=== PATIENT | female | born 1975 | race Caucasian/White ===

== ENCOUNTER → 2017-04-29 13:18 | Outpatient (CLI) | payer MEDICAID, SELFPAY ==
--- NOTE | 2017-04-29 13:21 | RAD_ITS ---
STUDY: X-RAY - RIGHT SHOULDER REASON FOR EXAM: Female, 41 years old. Shoulder pain. TECHNIQUE: 3 view(s) of the shoulder. COMPARISON: None. FINDINGS: Normal glenohumeral articulation. Normal acromioclavicular joint. Normal acromion. Normal humeral head and visualized proximal humerus. The soft tissue structures are unremarkable. Normal visualized pulmonary apex. RAD/Shoulder min 2 Views IMPRESSION: Normal x-ray examination of the shoulder. Electronically Signed: Cruz Alejandra MD at 14:26 EST Tel [phone], Service support ,
== END ==
PROVIDERS: Family Provider Internal Medicine; PCP Internal Medicine; Visit Provider Orthopaedic Surgery
DX: M25.511 Pain in right shoulder (principal)
CPT/HCPCS: 73030

== ENCOUNTER → 2017-05-26 16:55 | Outpatient (CLI) | payer MEDICAID, SELFPAY ==
--- NOTE | 2017-05-26 16:57 | MRI_ITS ---
STUDY: MRI RIGHT SHOULDER REASON FOR EXAM: Female, 41 years old. Right-sided shoulder pain with movement. TECHNIQUE: Standardized fat and water weighted pulse sequences were obtained in all 3 orthogonal planes. COMPARISON: None. FINDINGS: There is intratendinous edema consistent with a supraspinatus tendinitis. Normal infraspinatus tendon. There is mild abnormal signal within the distal subscapularis tendon suggesting partial thickness tear. Normal teres minor tendon. Normal supraspinatus muscle. Normal infraspinatus muscle. Normal subscapularis muscle. Normal teres minor muscle. Normal glenohumeral articulation. There is mild heterogeneous signal within the humerus that may be related to reactivated hematopoietic marrow. Normal biceps labral complex. Normal intracapsular long biceps tendon. Normal labrum. Normal capsulo- ligamentous complex. Normal rotator interval. There is mild osteoarthritis of the acromioclavicular articulation. There is a Type I morphology (flat undersurface),. There is minimal fluid distention of the subacromial bursa, consistent with mild subacromial-subdeltoid bursitis. Normal deltoid muscle. Normal trapezius muscle. MRI/Upper Ext Joint Only(Routine) IMPRESSION: 1. Mild tendinopathy of the supraspinatus tendon. 2. Possible partial thickness tear of the distal subscapularis tendon. Electronically Signed: Anali Rayo MD at 11:49 EDT , Service support ,
== END ==
PROVIDERS: Family Provider Internal Medicine; PCP Internal Medicine; Visit Provider Orthopaedic Surgery
DX: M75.110 Incomplete rotator cuff tear or rupture of unspecified shoulder, not specified as traumatic (principal); S43.439A Superior glenoid labrum lesion of unspecified shoulder, initial encounter
CPT/HCPCS: 73221

== ENCOUNTER 2017-09-14 18:03 | Emergency (ER) | payer MEDICAID, SELFPAY ==
[2017-09-14 18:04] VITALS: BP 141/80; PULSE 73; RESP 16; TEMP 36.1; O2SAT 97; BMI 27.1
--- NOTE | 2017-09-14 18:13 | RAD_ITS ---
STUDY: X-RAY - LEFT ELBOW REASON FOR EXAM: Female, 42 years old. Posterior pain and limited range of motion after fall. TECHNIQUE: 3 view(s) of the elbow. COMPARISON: None. FINDINGS: There is a nondisplaced intra-articular fracture of the radial head. Normal visualized humerus and ulna. Normal radiocapitellar and ulnotrochlear articulations. There is displacement of the intercondylar fat pads by joint effusion or hemarthrosis. RAD/Elbow min 3 Views IMPRESSION: Nondisplaced intra-articular fracture of the radial head, accompanied by joint effusion or hemarthrosis. Electronically Signed: Dillon Gonzalez MD at 19:27 EDT , Service support ,
--- NOTE | 2017-09-14 18:15 | ED.VISSUMM ---
- ER Visit Summary Date of Service: 09/14/17 Chief Complaint: Fall with left elbow pain History of Present Illness: The patient is a 42 F right-hand dominant. States she slipped and fell down a rock landing on her left elbow. This occurred last several hours. She denies any other injuries. She denies any prior fracture or surgery to the left upper extremity. No head injury. No LOC. Physical Examination: Well-appearing middle-age female. Vital signs are stable afebrile. H EENT exam on remarkable. Atraumatic. Neck nontender full range of motion. Lungs clear to auscultation bilaterally. Heart regular rate and rhythm no murmur. Chest wall nontender. Abdomen soft nontender. No peritoneal signs. Pelvic girdle intact. She is moving all 4 extremities. The neurovascular intact. No gross bony deformities. Specifically the left elbow on the dorsum is mildly swollen and has mild pain on palpation. No gross bony deformity. Landmarks intact. Distal forearm, wrist and hand are nontender neurovascular intact with normal external grinder tool strength. Full range of motion to her left hand. Normal radial pulse. Back exam is nontender. Spine is nontender. Neurologic exam is normal. GCS 15. Test Results: Left elbow x-ray nondisplaced radial head fracture. 3 views read by myself. Emergency Department Course and Treatment: P.o. Percocet for pain Treatment Plan: Patient is doing well repeat exam. She does have increased elbow pain with supination and pronation. She was placed in a long-arm well-padded posterior splint. Also receive a sling. She will call and follow-up with Dr. Liao. Percocet for pain and Motrin. Disposition: discharge Impression: Acute fall Acute left elbow radial head fracture Long-arm posterior splint by ER with Ortho-Glass This note was generated with [employer] dictation software. It may contain incorrect words, spelling, and punctuation that were not noted in review of the chart prior to signing ED Disposition - Plan for ED Patient: Chief Complaint: Upper Extremity Injury Referrals: Jhoan Alvarez Jr., MD [NON-STAFF] -
[2017-09-14] MEDS: oxyCODONE 5 MG Tablet 10 MG PO (18:26)
--- NOTE | 2017-09-14 18:54 | ED.DEP ---
ED Disposition - Plan for ED Patient: Disposition: Home or Assisted Living Chief Complaint: Upper Extremity Injury Instructions: ED Fx Radial Head Prescriptions: Oxycodone HCl/Acetaminophen [Percocet 10-325 mg Tablet] 1 - 2 tab PO Q6H PRN PRN #20 tab PRN Reason: Pain Referrals: Kati Liao DO [STAFF PHYSICIAN] - As soon as possible Additional Instructions: Keep splint dry and clean. Ice to decrease pain and swelling. Motrin and Percocet for pain. Do not drink or drive while using the Percocet. Call and follow-up with Dr. Liao. You had a left elbow radial head fracture.
[2017-09-14 18:55] VITALS: BP 138/70; PULSE 80; RESP 14; O2SAT 99
[2017-09-14] MEDS: oxyCODONE 5 MG Tablet PO (19:09)
== END 2017-09-14 19:10 | disposition home or self-care (01) ==
PROVIDERS: Emergency Provider Emergency Medicine
DX: S52.125A Nondisplaced fracture of head of left radius, initial encounter for closed fracture (principal); W01.0XXA Fall on same level from slipping, tripping and stumbling without subsequent striking against object, initial encounter; Y93.01 Activity, walking, marching and hiking; Y92.89 Other specified places as the place of occurrence of the external cause; Y99.8 Other external cause status
CPT/HCPCS: 29105; 73080; 99282

== ENCOUNTER 2017-09-25 17:18 | Emergency (ER) | payer MEDICAID, SELFPAY ==
[2017-09-25 17:19] VITALS: BP 136/94; PULSE 86; RESP 18; TEMP 36.9; O2SAT 99; BMI 26.6
[2017-09-25] MEDS: Naproxen 500 MG Tablet PO (17:35)
--- NOTE | 2017-09-25 17:40 | RAD_ITS ---
STUDY: X-RAY - LEFT ELBOW REASON FOR EXAM: Female, 42 years old. Elbow pain. Radial head fracture diagnosed on September 14, 2017. TECHNIQUE: 4 view(s) of the elbow. COMPARISON: September 14, 2017 FINDINGS: The nondisplaced radial head fracture which was present on the prior study remains. Normal radiocapitellar and ulnotrochlear articulations. The soft tissue structures are unremarkable. RAD/Elbow min 3 Views IMPRESSION: Stable nondisplaced radial head fracture. No new finding. Electronically Signed: Selvin Amor MD at 18:03 EDT , Service support ,
--- NOTE | 2017-09-25 18:12 | ED.DCSUM_ITS ---
- ER Visit Summary Date of Service: 09/25/17 Chief Complaint: Left elbow pain History of Present Illness: The patient is a 42 F who presents with left elbow pain. She had a mechanical fall on September 14 was diagnosed with a radial head fracture. She was placed in a splint. She did see orthopedics in follow-up in the splint was removed. She was told that she could go ahead and start physical therapy. Patient complains of ongoing pain since that time. She is now out of Percocet. She states she has not tried any other medication since ibuprofen the day of the injury. She was getting out of the pool today and slipped and caught herself with her arms and her pain seems to be worse since that time. No paresthesias or weakness. Patient denies any other injuries. Physical Examination: Afebrile vitals are normal Heart regular Lungs clear Patient has painful range of motion of left elbow but is able to go through full range of motion she is neurovascularly intact with normal sensation and brisk capillary refill Test Results: Left elbow x-ray shows a stable nondisplaced radial head fracture Emergency Department Course and Treatment: Patient was given naproxen here. She was offered further anti-inflammatories for home which she declined. I stressed the importance of supportive care including ice and elevation. She was advised to follow-up with orthopedics. She was discharged. Treatment Plan: [] Disposition: Discharge Impression: Left radial head fracture This note was generated with [employer] dictation software. It may contain incorrect words, spelling, and punctuation that were not noted in review of the chart prior to signing ED Disposition - Plan for ED Patient: Chief Complaint: Upper Extremity Injury Referrals: Care Physician,No Primary [Primary Care Provider] -
--- NOTE | 2017-09-25 18:15 | ED.DEP ---
ED Disposition - Plan for ED Patient: Chief Complaint: Upper Extremity Injury Instructions: ED Fx Radial Head Referrals: Care Physician,No Primary [Primary Care Provider] - Kati Liao DO [STAFF PHYSICIAN] -
[2017-09-25 18:19] VITALS: PULSE 86; RESP 15
== END 2017-09-25 18:20 | disposition home or self-care (01) ==
PROVIDERS: Emergency Provider Emergency Medicine
DX: S52.125D Nondisplaced fracture of head of left radius, subsequent encounter for closed fracture with routine healing (principal); F41.9 Anxiety disorder, unspecified; G47.00 Insomnia, unspecified; Z79.899 Other long term (current) drug therapy; W19.XXXD Unspecified fall, subsequent encounter
CPT/HCPCS: 73080; 99283

== ENCOUNTER 2018-02-07 08:26 | Emergency (ER) | payer MEDICAID, SELFPAY ==
[2018-02-07 08:28] VITALS: BP 111/69; PULSE 113; RESP 16; TEMP 37.1; O2SAT 97; BMI 27.4
--- NOTE | 2018-02-07 08:49 | RAD_ITS ---
STUDY: X-RAY - LUMBAR SPINE REASON FOR EXAM: Female, 42 years old. Low back pain following a fall. TECHNIQUE: 3 view(s) of the lumbar spine were obtained. COMPARISON: None FINDINGS: Normal lumbar lordosis. There is a minimal dextroscoliosis of the lumbar spine. There is a normal alignment of the vertebrae. Normal vertebral bodies and endplates. Normal disc space heights. Calcified phleboliths. RAD/Lumbar Spine 2 or 3 Views IMPRESSION: Minimal dextroscoliosis. Electronically Signed: Cruz Alejandra MD at 10:09 EST Tel [phone], Service support ,
[2018-02-07] MEDS: oxyCODONE 5 MG Tablet PO (09:37)
--- NOTE | 2018-02-07 10:51 | ED.VISSUMM ---
- ER Visit Summary Date of Service: 02/07/18 Chief Complaint: [Back injury] History of Present Illness: The patient is a 42 F [resents to the emergency department with complaint of a back injury that occurred when she slipped and fell yesterday. Patient states that she was going down some icy steps when she fell and landed on her back. Patient denies striking her head or loss of consciousness. Patient states that she bumped her left elbow but really not having much discomfort in it. Patient has been ambulatory. Patient denies any pain rating down her legs. She denies any change in bowel or bladder function. She denies any numbness or tingling in extremities.] Physical Examination: [HEENT-PERRLA, EOMI. Cranial nerves II through XII grossly intact. TMs clear. Mucous membranes moist. No adenopathy. Cardiovascular-regular rate and rhythm without murmur or ectopy Lungs-clear to auscultation, chest wall stable without crepitus or subcu emphysema Abdomen-normoactive bowel sounds, soft, nontender, no rebound or rigidity, no peritoneal signs. Back exam-patient has no tenderness over the thoracic spine. Patient has no C-spine tenderness on palpation. Patient does have some mild diffuse tenderness over the lumbar spine. There is no ecchymosis or bruising noted to her back. Patient has negative straight leg raises. Deep tendon reflexes are plus 2 out of 4 bilaterally at the patella and Achilles. Extremities-intact ?4, normal range of motion, normal pulses, atraumatic] Test Results: [X-rays of the lumbar spine obtained were read as no fractures.] Emergency Department Course and Treatment: [Was given 1 OxyIR p.o. for pain.] Treatment Plan: [Patient will be given a prescription for a few days worth of Percocet and given referral to primary care physician bank credit card collection clerk for no doc.] Disposition: [Discharged home in stable condition. Patient advised to return if worsening pain, weakness in extremities, change of bowel or bladder function, or condition should worsen anyway.] Impression: [Mechanical fall Contusion back] This note was generated with [employer] dictation software. It may contain incorrect words, spelling, and punctuation that were not noted in review of the chart prior to signing ED Disposition - Plan for ED Patient: Chief Complaint: Back Referrals: Care Physician,No Primary [Primary Care Provider] -
--- NOTE | 2018-02-07 10:54 | ED.DCSUM_ITS ---
- ER Visit Summary Date of Service: 02/07/18 Chief Complaint: [Back injury] History of Present Illness: The patient is a 42 F [resents to the emergency department with complaint of a back injury that occurred when she slipped and fell yesterday. Patient states that she was going down some icy steps when she fell and landed on her back. Patient denies striking her head or loss of consciousness. Patient states that she bumped her left elbow but really not having much discomfort in it. Patient has been ambulatory. Patient denies any pain rating down her legs. She denies any change in bowel or bladder function. She denies any numbness or tingling in extremities.] Physical Examination: [HEENT-PERRLA, EOMI. Cranial nerves II through XII grossly intact. TMs clear. Mucous membranes moist. No adenopathy. Cardiovascular-regular rate and rhythm without murmur or ectopy Lungs-clear to auscultation, chest wall stable without crepitus or subcu emphysema Abdomen-normoactive bowel sounds, soft, nontender, no rebound or rigidity, no peritoneal signs. Back exam-patient has no tenderness over the thoracic spine. Patient has no C- spine tenderness on palpation. Patient does have some mild diffuse tenderness over the lumbar spine. There is no ecchymosis or bruising noted to her back. Patient has negative straight leg raises. Deep tendon reflexes are plus 2 out of 4 bilaterally at the patella and Achilles. Extremities-intact ?4, normal range of motion, normal pulses, atraumatic] Test Results: [X-rays of the lumbar spine obtained were read as no fractures.] Emergency Department Course and Treatment: [Was given 1 OxyIR p.o. for pain.] Treatment Plan: [Patient will be given a prescription for a few days worth of Percocet and given referral to primary care physician environmental assistant for no doc.] Disposition: [Discharged home in stable condition. Patient advised to return if worsening pain, weakness in extremities, change of bowel or bladder function, or condition should worsen anyway.] Impression: [Mechanical fall Contusion back] This note was generated with [employer] dictation software. It may contain incorrect words, spelling, and punctuation that were not noted in review of the chart prior to signing ED Disposition - Plan for ED Patient: Chief Complaint: Back Referrals: Care Physician,No Primary [Primary Care Provider] -
--- NOTE | 2018-02-07 10:54 | ED.DEP ---
ED Disposition - Plan for ED Patient: Chief Complaint: Back Instructions: ED Contusion Back Prescriptions: Oxycodone HCl/Acetaminophen [Percocet 5/325] 1 tab PO Q6H PRN PRN 3 Days #12 tab PRN Reason: Pain Referrals: Care Physician,No Primary [Primary Care Provider] - Fast,Arti, DO [NON-STAFF] - 5-7 Days
[2018-02-07 11:01] VITALS: PULSE 102; RESP 14; O2SAT 98
--- NOTE | 2018-02-07 11:02 | NURSING ---
pt states ride is waiting out side. pt instructed not to drive. she was d/c to waiting room. sen head rn. [id number]
--- OUTSIDE RECORDS SUMMARY | 2018-03-21 21:53 | XMS RPT_ITS ---
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 Neurological: She is alert. Skin: Skin is warm and dry. No rash noted. Nursing note and vitals reviewed. ASSESSMENT/PLAN: 1. Bacterial sinusitis - ICD9: 473.9, 041.9, ICD10: J32.9, B96.89 (primary diagnosis) - Will begin treatment with Augmentin 875 mg PO BID for 10 days - Supportive care with plenty of fluids, rest, and analgesia prn. - AMOXICILLIN 875 MG-POTASSIUM CLAVULANATE 125 MG TABLET - BENZONATATE 100 MG CAPSULE - did not refill cough syrup with codeine, a 5 day supply was given 3 days ago. 2. History of gastroesophageal reflux (GERD) - ICD9: V12.79, ICD10: Z87.19 - OMEPRAZOLE 20 MG CAPSULE,DELAYED RELEASE- refill provided. - Follow-up with your PCP in 3-5 days if symptoms have not improved or sooner if symptoms worsen - Discussed red flags and need for immediate medical evaluation if any occur. - Discussed supportive care treatment with fluids, rest and analgesia. - Discussed expected course of illness BENJAMIN Jensen APRN.CNP 08/23/2017 10:15 AM Signed Acute Sinusitis Each of us has four paired cavities (spaces) in our head that are connected to the nose by narrow channels. These cavities, known as sinuses, produce thin mucus that drains out of the channels of the nose. This drainage helps keep the nose clean and free of particles and bacteria. Normally, sinuses are filled with air. But when sinuses become blocked and filled with fluid, bacteria can grow and cause an infection (bacterial sinusitis). Conditions that cause sinus blockage include: ? the common cold ? allergic rhinitis (swelling of the lining of the nose due to allergies) ? nasal polyps (small growths in the lining of the nose), or ? a deviated septum (the wall between the left and right nostril is crooked). Allergies, such as hay fever, can also cause swelling and poor drainage of the sinuses. One confusing factor to consider is that many people with ?sinus headaches? are actually suffering from migraines. In fact, in large clinical studies, up to 90% of people who reported sinus headaches were diagnosed with migraines instead. Migraines can cause headaches in combination with facial pressure over the sinuses, a runny nose, and nasal congestion. If you have symptoms that involve the sinuses, it may be difficult to tell if you have sinusitis, a cold, nasal allergy, or even a migraine. This article will describe the symptoms, diagnosis, and treatment of sinusitis, and how to tell the difference between sinusitis, cold, migraines, and nasal allergy. What is sinusitis? Sinusitis is an inflammation, or swelling, of the tissue lining the sinuses. There are two types of sinusitis: ? Acute bacterial sinusitis: a sudden onset of cold symptoms such as runny nose, stuffy nose, and facial pain that does not go away after 10 days, or symptoms that seem to begin improving but return worse than the initial symptoms. It responds well to antibiotics and decongestants. ? Chronic sinusitis: a condition defined by nasal congestion, drainage, facial pain/pressure, and decreased sense of smell for at least 12 weeks. Who gets sinusitis? Every year, approximately 1 billion Americans have at least one episode of viral sinusitis. About 37 million will develop a bacterial sinusitis. People who have the following conditions have a higher risk of sinusitis: ? Nasal mucus membrane swelling, as from a common cold or allergies ? Blockage of drainage ducts, leading to trapping of mucus ? Structure differences that narrow the drainage ducts ? Conditions that result in an increased risk of infection ? Polyps (growths) In children, common factors in the environment that contribute to sinusitis include allergies, illness from other children at day care or school, and smoke in the environment. In adults, the contributing factors are most frequently viral infections, allergies, and smoking. What are the signs and symptoms of acute sinusitis? The primary symptoms of acute sinusitis include: ? Facial pain/pressure/tenderness ? Nasal stuffiness ? Nasal discharge (thick yellow or green discharge from nose), especially if it is long-lasting. These also may be present with viral illness. ? Loss of smell and taste ? Cough/congestion Additional symptoms may include: ? Fever of 102? or higher ? Ear pain ? Headache ? Bad breath ? Fatigue ? Ache in upper jaw and teeth How is sinusitis diagnosed? To diagnose sinusitis, your doctor will discuss your symptoms and examine your nose for swelling and drainage. Your personal history is most important in diagnosing sinusitis. A physical exam of the ears, nose, and throat is performed to look for signs of obstruction (blockage) or infection. Some patients may have conditions that may need to be referred to a specialist, such as an ear, nose, and throat (ENT) physician. How is sinusitis treated? Acute sinusitis. If you have a simple sinusitis infection, your health care provider may recommend treatment with driz-pns-sjqtwlh medications for cold and allergy, nasal saline irrigation, and drinking fluids (as most sinusitis is viral). Use of prescription intranasal steroid sprays might be added to help control symptoms. However, non-prescription drops or sprays should not be used beyond 5 days -- or they may actually increase congestion. If symptoms do not improve after at least 10 days, if the symptoms seem to be getting worse, or if medications for cold or allergy do not improve symptoms, a bacterial infection may be causing the sinusitis. In this case, antibiotics are given for 7 days in adults and 10 days in children. Antibiotics should improve symptoms within 48 hours. Chronic sinusitis. Treating chronic sinusitis begins with controlling the underlying condition, which is most often allergies. Standard treatments include intranasal steroid sprays, topical antihistamine sprays, or antihistamine pills, and leukotriene antagonists such as montelukast. Often you will be encouraged to rinse the nose with saline irrigations. Sometimes medications may be added to these irrigations. If sinusitis is not controlled, the next step is a visit with an Ear, Nose and Throat Specialist. Will I need to make lifestyle changes? If you have indoor allergies, avoiding triggers -- such as animal dander and dust mites ? is recommended in addition to medications. Smoking is never recommended, but if you do smoke, strongly consider a program to help you stop smoking, as this may be the main reason you have sinus infections. No special diet is required, but drinking extra fluids helps to thin nasal secretions. What are the symptoms of the common cold? An upper respiratory infection (the common cold) is usually caused by a virus that infects the nose and throat. Most upper respiratory infections are not bacterial and do not respond to antibiotics. A cold may cause swelling in the sinuses, preventing the outflow of mucus. Cold symptoms include nasal congestion, runny nose, post-nasal drip (xwhv-cf-zmcn release of nasal fluid into the back of the throat), headache, achiness, and fatigue. Cough and fever may also go along with these symptoms. Cold symptoms usually build, peak, and slowly disappear. No treatment is necessary for a cold, but some medications can ease symptoms. For example, decongestants may decrease drainage and open the nasal passages. Analgesics (pain relievers) may help with fever and headache. Cough medication may help, as well. Colds will typically last from a few days to about a week. What is the harm in getting an antibiotic for a common cold? Viral infections like the common cold are not cured by antibiotics. Taking an antibiotic for a viral infection unnecessarily puts you at risk for side effects related to the antibiotic. In addition, the overuse of antibiotics leads to antibiotic resistance, which may make future infections more difficult to treat. Finally, the use of inappropriate medication increases health care costs unnecessarily. What are the symptoms of nasal allergy? Symptoms of nasal allergy include: ? Sneezing ? Itchy nose ? Clear, watery nasal discharge ? Nasal blockage ? Feeling fatigued How is nasal allergy treated? Usually medications are prescribed to relieve symptoms. These may include antihistamines, with or without decongestants, or steroid nasal sprays. Other nasal sprays, which deliver antihistamines or cromolyn sodium, are sometimes helpful. If allergy symptoms are chronic (long-term), allergy testing and allergy shots (immunotherapy) may be helpful. How can I tell if I have a sinus infection, cold, or nasal allergy? Although the symptoms of sinusitis and nasal allergy may occur with a common cold, in general, cold-related symptoms disappear within 1 week. The point at which a normal cold ends and a sinus condition begins is not always easy to know. If you are fighting off a cold and develop symptoms of a sinus infection or nasal allergy, see your health care provider. You will be asked to describe your symptoms and medical history. ? How do I know if my sinus condition requires the care of an ear, nose, and throat specialist? Most routine sinus conditions are easily cared for by primary care physicians. If, however, you are bothered by ongoing abnormal symptoms, recurring infections, or have abnormal X-ray findings or complications, a referral to a specialist is appropriate. References ? Mariam Ramon et al., IDSA Clinical Practice Guideline for Acute Bacterial Rhinosinusitis in Children and Adults. Clinical Infectious Diseases; 2012;54(8):4458-2616. ? Evelyn Devries, Sinusitis: Allergies, antibiotics, aspirin, asthma. [facility] Journal of Medicine 2006; 73(7): 671-678 ? National [employer]ious [employer]. Sinusitis (Sinus Infection) Accessed 01/21/2015. ? [place] [employer], [employer]hma, and Immun[employer]. Sinusitis Accessed 01/21/2015. ? [place] [employer]. Sinus Information Accessed 01/21/2015. ? Kathia George., Prevalence of migraine in patients with a history of self-reported or physician-diagnosed sinus headache. [employer], 2004. 164(16):1769-72. ? Copyright 2552-3568 The [facility]. All rights reserved. Referring Provider: SELF [200] Allergies As of Date: 08/23/2017 Noted Allergy Reaction CODEINE 04/18/2006 4 - Hives 9 - Itching Comments: only tylenol with codeine VICODIN (HYDROCODONE-ACETAMINOPHE*03/29/2007 9 - Itching Date Reviewed: 08/23/2017 Reviewed by: Lorin ([facility]) Phillip - Fully Assessed Reason for Visit: Cough [28] Cmt: sinus fullness AND burning, headache AND sore throat X 2 wks Reason For Visit History Recorded Primary Visit Diagnosis:Bacterial sinusitis [J32.9, B96.89] Other Visit Diagnosis:History of gastroesophageal reflux (GERD) [Z87.19] Order(s):omeprazole (PRILOSEC) 20 mg capsuleTake 1 capsule by mouth as needed. 1/2 hr before meal.Disp: 30 capsuleRfl: 0 amoxicillin-clavulanic acid (AUGMENTIN) 875-125 mg per tabletTake 1 tablet by mouth twice daily for 10 days.Disp: 20 tabletRfl: 0 benzonatate (TESSALON PERLE) 100 mg capsuleTake 1 capsule by mouth three times daily as needed for up to 10 days.Disp: 30 capsuleRfl: 0 Prescriptions as of 08/23/2017 Sig: IBUPROFEN 600 MG TABLET Take 1 tablet by mouth every * LORAZEPAM 0.5 MG TABLET Take by mouth three times da* DEXTROAMPHETAMINE-AMPHETAMINE* Take 10 mg by mouth once amadou* AMBIEN ORAL Take by mouth. 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 These cavities, known as sinuses, produce thin mucus that drains out of the channels of the nose. This drainage helps keep the nose clean and free of particles and bacteria. Normally, sinuses are filled with air. But when sinuses become blocked and filled with fluid, bacteria can grow and cause an infection (bacterial sinusitis). Conditions that cause sinus blockage include: ? the common cold ? allergic rhinitis (swelling of the lining of the nose due to allergies) ? nasal polyps (small growths in the lining of the nose), or ? a deviated septum (the wall between the left and right nostril is crooked). Allergies, such as hay fever, can also cause swelling and poor drainage of the sinuses. One confusing factor to consider is that many people with ?sinus headaches? are actually suffering from migraines. In fact, in large clinical studies, up to 90% of people who reported sinus headaches were diagnosed with migraines instead. Migraines can cause headaches in combination with facial pressure over the sinuses, a runny nose, and nasal congestion. If you have symptoms that involve the sinuses, it may be difficult to tell if you have sinusitis, a cold, nasal allergy, or even a migraine. This article will describe the symptoms, diagnosis, and treatment of sinusitis, and how to tell the difference between sinusitis, cold, migraines, and nasal allergy. What is sinusitis? Sinusitis is an inflammation, or swelling, of the tissue lining the sinuses. There are two types of sinusitis: ? Acute bacterial sinusitis: a sudden onset of cold symptoms such as runny nose, stuffy nose, and facial pain that does not go away after 10 days, or symptoms that seem to begin improving but return worse than the initial symptoms. It responds well to antibiotics and decongestants. ? Chronic sinusitis: a condition defined by nasal congestion, drainage, facial pain/pressure, and decreased sense of smell for at least 12 weeks. Who gets sinusitis? Every year, approximately 1 billion Americans have at least one episode of viral sinusitis. About 37 million will develop a bacterial sinusitis. People who have the following conditions have a higher risk of sinusitis: ? Nasal mucus membrane swelling, as from a common cold or allergies ? Blockage of drainage ducts, leading to trapping of mucus ? Structure differences that narrow the drainage ducts ? Conditions that result in an increased risk of infection ? Polyps (growths) In children, common factors in the environment that contribute to sinusitis include allergies, illness from other children at day care or school, and smoke in the environment. In adults, the contributing factors are most frequently viral infections, allergies, and smoking. What are the signs and symptoms of acute sinusitis? The primary symptoms of acute sinusitis include: ? Facial pain/pressure/tenderness ? Nasal stuffiness ? Nasal discharge (thick yellow or green discharge from nose), especially if it is long-lasting. These also may be present with viral illness. ? Loss of smell and taste ? Cough/congestion Additional symptoms may include: ? Fever of 102? or higher ? Ear pain ? Headache ? Bad breath ? Fatigue ? Ache in upper jaw and teeth How is sinusitis diagnosed? To diagnose sinusitis, your doctor will discuss your symptoms and examine your nose for swelling and drainage. Your personal history is most important in diagnosing sinusitis. A physical exam of the ears, nose, and throat is performed to look for signs of obstruction (blockage) or infection. Some patients may have conditions that may need to be referred to a specialist, such as an ear, nose, and throat (ENT) physician. How is sinusitis treated? Acute sinusitis. If you have a simple sinusitis infection, your health care provider may recommend treatment with auza-orr-myzjzoa medications for cold and allergy, nasal saline irrigation, and drinking fluids (as most sinusitis is viral). Use of prescription intranasal steroid sprays might be added to help control symptoms. However, non- prescription drops or sprays should not be used beyond 5 days -- or they may actually increase congestion. If symptoms do not improve after at least 10 days, if the symptoms seem to be getting worse, or if medications for cold or allergy do not improve symptoms, a bacterial infection may be causing the sinusitis. In this case, antibiotics are given for 7 days in adults and 10 days in children. Antibiotics should improve symptoms within 48 hours. Chronic sinusitis. Treating chronic sinusitis begins with controlling the underlying condition, which is most often allergies. Standard treatments include intranasal steroid sprays, topical antihistamine sprays, or antihistamine pills, and leukotriene antagonists such as montelukast. Often you will be encouraged to rinse the nose with saline irrigations. Sometimes medications may be added to these irrigations. If sinusitis is not controlled, the next step is a visit with an Ear, Nose and Throat Specialist. Will I need to make lifestyle changes? If you have indoor allergies, avoiding triggers -- such as animal dander and dust mites ? is recommended in addition to medications. Smoking is never recommended, but if you do smoke, strongly consider a program to help you stop smoking, as this may be the main reason you have sinus infections. No special diet is required, but drinking extra fluids helps to thin nasal secretions. What are the symptoms of the common cold? An upper respiratory infection (the common cold) is usually caused by a virus that infects the nose and throat. Most upper respiratory infections are not bacterial and do not respond to antibiotics. A cold may cause swelling in the sinuses, preventing the outflow of mucus. Cold symptoms include nasal congestion, runny nose, post- nasal drip (vdux-dk-tlmg release of nasal fluid into the back of the throat), headache, achiness, and fatigue. Cough and fever may also go along with these symptoms. Cold symptoms usually build, peak, and slowly disappear. No treatment is necessary for a cold, but some medications can ease symptoms. For example, decongestants may decrease drainage and open the nasal passages. Analgesics (pain relievers) may help with fever and headache. Cough medication may help, as well. Colds will typically last from a few days to about a week. What is the harm in getting an antibiotic for a common cold? Viral infections like the common cold are not cured by antibiotics. Taking an antibiotic for a viral infection unnecessarily puts you at risk for side effects related to the antibiotic. In addition, the overuse of antibiotics leads to antibiotic resistance, which may make future infections more difficult to treat. Finally, the use of inappropriate medication increases health care costs unnecessarily. What are the symptoms of nasal allergy? Symptoms of nasal allergy include: ? Sneezing ? Itchy nose ? Clear, watery nasal discharge ? Nasal blockage ? Feeling fatigued How is nasal allergy treated? Usually medications are prescribed to relieve symptoms. These may include antihistamines, with or without decongestants, or steroid nasal sprays. Other nasal sprays, which deliver antihistamines or cromolyn sodium, are sometimes helpful. If allergy symptoms are chronic (long- term), allergy testing and allergy shots (immunotherapy) may be helpful. How can I tell if I have a sinus infection, cold, or nasal allergy? Although the symptoms of sinusitis and nasal allergy may occur with a common cold, in general, cold-related symptoms disappear within 1 week. The point at which a normal cold ends and a sinus condition begins is not always easy to know. If you are fighting off a cold and develop symptoms of a sinus infection or nasal allergy, see your health care provider. You will be asked to describe your symptoms and medical history. ? How do I know if my sinus condition requires the care of an ear, nose, and throat specialist? Most routine sinus conditions are easily cared for by primary care physicians. If, however, you are bothered by ongoing abnormal symptoms, recurring infections, or have abnormal X-ray findings or complications, a referral to a specialist is appropriate. References ? Mariam Ramon et al., IDSA Clinical Practice Guideline for Acute Bacterial Rhinosinusitis in Children and Adults. Clinical Infectious Diseases; 2012;54(8):1109-5117. ? Evelyn Devries, Sinusitis: Allergies, antibiotics, aspirin, asthma. [facility] Journal of Medicine 2006; 73(7): 671-678 ? [employer]ious [employer]. Sinusitis (Sinus Infection) Accessed 01/21/2015. ? [place] [employer], Asthma, and Immunology. Sinusitis Accessed 01/21/2015. ? [place] [employer]. Sinus Information Accessed 01/21/2015. ? Kathia George., Prevalence of migraine in patients with a history of self-reported or physician-diagnosed sinus headache. [employer], 2003. 164(16):1769-72. ? Copyright 4030-6297 The [facility]. All rights reserved. Prescriptions ordered this encounter Disp Refills Start End OMEPRAZOLE 20 MG CAPSULE,DELAYED REL* 30 c* 0 08/23/2017 Route: ORAL Sig: Take 1 capsule by mouth as needed. 1/2 hr before meal. AMOXICILLIN 875 MG-POTASSIUM CLAVULA* 20 t* 0 08/23/2017 09/02/2017 Route: ORAL Sig: Take 1 tablet by mouth twice daily for 10 days. BENZONATATE 100 MG CAPSULE 30 c* 0 08/23/2017 09/02/2017 Route: ORAL Sig: Take 1 capsule by mouth three times daily as needed for up to 10 days. Medications Discontinued During This Encounter codeine-guaiFENesin (GUAIFENESIN AC)* 60 mL 0 08/20/2017 08/23/2017 Class: Print RX Route: ORAL Sig: Take 5 mL by mouth three times daily as needed for Cough for up to 5 days. Patient not taking: Reported on 08/23/2017 Disc: Reason for discontinue is not on file. ARIPIPRAZOLE (ABILIFY ORAL) 08/23/2017 Class: Historical Med Route: ORAL Sig: Take by mouth. Disc: Reason for discontinue is not on file. omeprazole (PRILOSEC) 20 mg capsule 03/18/2016 08/23/2017 Class: Med Update Route: ORAL Sig: Take 1 capsule by mouth as needed. 1/2 hr before meal. Patient not taking: Reported on 08/20/2017 Disc: Reason for discontinue is not on file. meclizine (ANTIVERT) 25 mg tab 30 t* 0 03/10/2016 08/23/2017 Route: ORAL Sig: Take 1 tablet by mouth three times daily as needed (dizziness). Patient not taking: Reported on 08/20/2017 Disc: Reason for discontinue is not on file. ondansetron orally disintegrating (Z* 10 t* 0 02/12/2016 08/23/2017 Route: ORAL Sig: Take 1 tablet by mouth every 6 hours as needed for Nausea/Vomiting. Patient not taking: Reported on 08/20/2017 Disc: Reason for discontinue is not on file. ALPRAZolam (XANAX) 0.5 mg tablet 08/23/2017 Class: Historical Med Route: ORAL Sig: Take 0.5 mg by mouth twice daily as needed. Disc: Reason for discontinue is not on file. dicyclomine (BENTYL) 20 mg tablet 40 t* 0 09/26/2015 08/23/2017 Route: ORAL Sig: Take 1 tablet by mouth every 6 hours. Patient not taking: Reported on 08/20/2017 Disc: Reason for discontinue is not on file. topiramate (TOPAMAX) 100 mg tablet 08/23/2017 Class: Historical Med Route: ORAL Sig: Take 100 mg by mouth three times daily. Disc: Reason for discontinue is not on file. Encounter Status:Closed by LORIN FISHER on 08/23/17 PROGRESS Observed: 08/20/2017 Status: COMPLETED Source: [place] 12:39 PM [facility] [place] REPOSITORY HNO ID: [id number] Author: Abhishek Frazier Service: (none) Author Type: Physician Type: Progress Notes Filed: 08/20/2017 12:55 PM Note Text: Patient presents with: Sore Throat: sore throat X 4 days, cough X 4 days HPI: Feeling sick for 4 days. Positive symptoms: Cough, sleep disturbance, Sore throat (left side), painful to eat or swallow in the left ear, AM eye crust, Nasal Congestion, Body Aches, Negative symptoms: Shortness of breath, Chest pain, Rhinorrhea, Fever, Chills, OTC: Ibuprofen,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 Hand washing is an essential and highly effective way to prevent the spread of infection. Hands should be wet with water and plain soap, and rubbed together for 15 to 30 seconds. Special attention should be paid to the fingernails, between the fingers, and the wrists. Hands should be rinsed thoroughly, and dried with a single use towel. Alcohol-based hand rubs are a good alternative for disinfecting hands if a sink is not available. Hand rubs should be spread over the entire surface of hands, fingers, and wrists until dry, and may be used several times. These rubs can be used repeatedly without skin irritation or loss of effectiveness. Hand rubs are available as a liquid or wipe in small, portable sizes that are easy to carry in a pocket or handbag. When a sink is available, visibly soiled hands should be washed with soap and water. Hands should be washed after coughing, blowing the nose or sneezing. While it is not always possible to limit contact with a person who is sick, avoiding touching the eyes, nose, or mouth after direct contact can help to prevent the spread of infection. In addition, tissues should be used to cover the mouth when sneezing or coughing. These used tissues should be disposed of promptly. Sneezing/coughing into the sleeve of one's clothing (at the inner elbow) is another means of containing sprays of saliva and secretions and has the advantage of not contaminating the hands. WHEN TO SEEK HELP - Parents of a child with throat pain and one or more of the following should contact their healthcare provider immediately: Difficulty swallowing or breathing Excessive drooling in an or young child Temperature ?101?F or 38.3?C Swelling of the neck Child is unable or unwilling to drink or eat Voice sounds muffled Child has a stiff neck or difficulty opening the mouth WHERE TO GET MORE INFORMATION - Your child's healthcare provider is the best source of information for questions and concerns related to your child's medical problem. This article will be updated as needed every four months on our web site ([email or web address]). Information below was obtained from Up to date Last literature review version 19.2: July 2010 This topic last updated: October 29, 2009 Prescriptions ordered this encounter Disp Refills Start End PREDNISONE 20 MG TABLET 8 ta* 0 07/22/2017 07/26/2017 Route: ORAL Sig: Take 2 tablets by mouth once daily for 4 days. Take daily with food. PROMETHAZINE 25 MG TABLET 12 t* 0 07/22/2017 07/25/2017 Route: ORAL Sig: Take 1 tablet by mouth twice daily as needed for Nausea/Vomiting for up to 3 days. Disposition: Return if symptoms worsen or fail to improve. Follow-up and Disposition History Recorded Encounter Status:Closed by PEPE HERNANDEZ on 07/22/17 ORTHOPEDIC VISIT Observed: 06/12/2017 Status: F Source: [facility] REPORT 10:24 AM [facility] REPOSITORY [facility] Orthopa[facility]ics AND Sports Medicine [address] [place] [address] OFFICE VISIT Date of Service: 06/08/17 MR#: [id number] Acct: [id number] Name: DESIRAEVIVIJULITA A Rep #: [id number] : 1975 Provider: Shira Guadalupe DO Age/Sex: 41/F Location: [facility] [place] [place] Status: Signed Intake Intake Visit Reasons: RIGHT SHOULDER Is patient in pain?: Yes Pain scale (1-10): 7 Allergies codeine Allergy (Verified 04/29/17 13:31) Itching hydrocodone bitartrate [From Vicodin] Allergy (Verified 04/29/17 13:31) Itching Medications Aripiprazole [Abilify] 5 mg PO QHS 07/13/16 [History Confirmed 06/08/17] Lorazepam [Ativan] 0.5 mg PO BID 07/13/16 [History Confirmed 06/08/17] Topiramate [Topamax] 100 mg PO QHS 07/13/16 [History Confirmed 06/08/17] Zolpidem Tartrate [Ambien] 10 mg PO QHS 07/13/16 [History Confirmed 06/08/17] proMETHazine tablet [Phenergan] 25 mg PO Q6H PRN PRN #10 tab 03/14/17 [Rx Confirmed 06/08/17] PFSH Surgical History Status post arthroscopy of hip (Inactive) Social History Smoking Status: Never smoker HPI RIGHT SHOULDER: Details: JULITA ZURITA is a 41 year old F here today for MRI f/u. She continues to complain of aching and dull pain at all times with sharp pain in certain rom, she is having difficulty with ADLs like dressing and seatbelts. Denies numbness, tingling or other associated symptoms. She is not using any nsaids. ROS Const Reports system reviewed and no additional complaints, except as docu Eyes Reports system reviewed and no additional complaints, except as docu ENT Reports system reviewed and no additional complaints, except as docu Card Reports system reviewed and no additional complaints, except as docu Resp Reports system reviewed and no additional complaints, except as docu GI Reports system reviewed and no additional complaints, except as docu Musc Reports as per HPI, Reports limited joint movement, Reports stiffness, Reports muscle weakness, Reports joint pain Skin/Breast Reports system reviewed and no additional complaints, except as docu Neuro Yes system reviewed and no additional complaints, except as docu Psych Reports system reviewed and no additional complaints, except as docu Endo Reports system reviewed and no additional complaints, except as docu Ortho Exam Right Shoulder Contralateral Normal: Yes Testing: Positive Hawkin's, Neer's and TTP Biceps Internal Rotation: T12 SHOULDER: Patient is alert and oriented 3 in no acute distress. Appropriate eye contact and affect. Otherwise intact the C5 to the T2 distributions. She has positive pulses. Patient continues show a positive Kaur and Neer's examination. She is tender palpation across the biceps and subscapularis anteriorly. Her belly press appears to be otherwise intact. Negative liftoff but painful. Patient has otherwise good range of motion about the shoulder continues have some degree of a SLAP type maneuver. MRI: Evaluated myself the patient-patient shows rotator cuff tendinopathy to the supraspinatus and face and teres. She has fluid my opinion consistent with subacromial bursitis. Her biceps labral complex appears normal. And she has a distal partial thickness tear of the subscapularis bursa MRI read. Left Shoulder Skin/Wound: Yes CDI Contralateral Normal: Yes Testing: Yes AROM-Forward Elevation 0-180, Yes AROM-External Rotation at side 0-60, Yes PROM-External Rotation at side 0-60, Yes AROM-External Rotation at 90 0-60, Yes PROM-Forward Elevation 0-180, Yes PROM-External Rotation at 90 0-60 Internal Rotation: Tip of Scapula Office Procedures Ortho Injections Injections Yes Subacromial Injection Right Details: Obtained consent for injection. Under sterile conditions, injected the patients right subacromial joint with a 10cc cocktail of 8cc bupivacaine and 2cc kenalog. The patient tolerated the injection well without any noted complication. Patient should call our office if redness develops, pain worsens or if they have any concerns. Office Meds Kenalog Performing Provider: Shira Guadalupe DO Administered by: Shira Guadalupe DO on 06/08/17 09:15 Dose Route Admin Location Lot Number Expiration DateNDC Chair Car Attendant 2 mg Intra-Articularright [id number] 06/12/18 1872-4848-12 FIGUEROA SPANN al SQUIBB Assessment AND Plan Problems 1. Impingement syndrome of right shoulder M75.41 2. Chronic right shoulder pain M25.511; G89.29 3. Strain of muscle(s) and tendon(s) of the rotator cuff of right shoulder, subsequent encounter S46.011D Plan Assessment: Right shoulder pain right shoulder impingement shoulder cuff strain/partial subscapularis cuff tear. Plan: At this point time I discussed with the patient her options. Her options include diagnostic shoulder scope evaluation of the rotator cuff anteriorly and the biceps labral complex. The biceps were subluxating based on physical exam her intraoperative examination I will tenodesis. Otherwise I will leave the biceps alone. The patient has a distal or inferior subscapularis tear I would leave that alone as it is pretty much a direct insertion and not really repairable per se. I think if the upper border subscapularis is still intact I would leave it alone. I will see the patient shows a symptomatic rotator cuff tear the subscapularis and it would be fixed if needed. At that point time then performed subacromial decompression. At this point time the patient would like to consider options but has not had a subacromial injection today. We will go ahead and proceed with a subacromial injection and see how she does. The patient were to fail that consideration for a diagnostic scope as stated above. Obtained consent for injection. Under sterile conditions, injected the patients right subacromial joint with a 10cc cocktail of 8cc bupivacaine and 2cc kenalog. The patient tolerated the injection well without any noted complication. Patient should call our office if redness develops, pain worsens or if they have any concerns. Patient will follow-up in 6 weeks as needed. Orders Orders: Medications Discontinued: Kenalog (triamcinolone acetonide) 2 mg (0.2 mL) Intra-Articular ONCE S43.439A Yonatan Lama Discontinued Reason: Office MediNS cation has been Documented as given Coding Level of Care Code Off vis,est,level 4 Diagnoses Impingement syndrome of right shoulder M75.41 Chronic right shoulder pain M25.511; G89.29 Chronicity: chronic Strain of muscle(s) and tendon(s) of the rotator cuff of right shoulder, subsequent encounter S46.011D Additional Codes hop separator.sub ([id number]) 06/12/17 1024 <Electronically signed by Shira Guadalupe DO> Date Shira Guadalupe DO Cosigner Signature: Date (if applicable) CC: UPPER EXT JOINT Observed: 05/26/2017 Status: F Source: [facility]IR[facility] ONLY(ROUTINE) 4:57 PM [facility] REPOSITORY [facility] Imaging Services [address] [place] [address] Upper Ext Joint Only(Routine) MR#: [id number] Acct: [id number] Name: JULITA ZURITA Rep #: [id number] : 1975 F 41 From: Anali Mathias MD PCP: Shweta Gorman Jr., MD Status: REG CLI Study: Upper Ext Joint Only(Routine) Date of Exam: 05/26/17 Exam# [id number] Ordering Dr: Shira Guadalupe DO STUDY: MRI RIGHT SHOULDER REASON FOR EXAM: Female, 41 years old. Right-sided shoulder pain with movement. TECHNIQUE: Standardized fat and water weighted pulse sequences were obtained in all 3 orthogonal planes. COMPARISON: None. FINDINGS: There is intratendinous edema consistent with a supraspinatus tendinitis. Normal infraspinatus tendon. There is mild abnormal signal within the distal subscapularis tendon suggesting partial thickness tear. Normal teres minor tendon. Normal supraspinatus muscle. Normal infraspinatus muscle. Normal subscapularis muscle. Normal teres minor muscle. Normal glenohumeral articulation. There is mild heterogeneous signal within the humerus that may be related to reactivated hematopoietic marrow. Normal biceps labral complex. Normal intracapsular long biceps tendon. Normal labrum. Normal capsulo- ligamentous complex. Normal rotator interval. There is mild osteoarthritis of the acromioclavicular articulation. There is a Type I morphology (flat undersurface),. There is minimal fluid distention of the subacromial bursa, consistent with mild subacromial-subdeltoid bursitis. Normal deltoid muscle. Normal trapezius muscle. MRI/Upper Ext Joint Only(Routine) IMPRESSION: 1. Mild tendinopathy of the supraspinatus tendon. 2. Possible partial thickness tear of the distal subscapularis tendon. Electronically Signed: Anali Mathias MD at 11:49 EDT , Service support , CC: Shweta Gorman Jr., MD; Shira Guadalupe DO Kiln Pusher: Signed ORTHOPEDIC VISIT Observed: 04/29/2017 Status: F Source: [facility]IRA REPORT 3:17 PM [facility] REPOSITORY [facility] Orthopaedics AND Sports Medicine [facility] [facility] [address] [place] [address] OFFICE VISIT Date of Service: 04/29/17 MR#: [id number] Acct: [id number] Name: JULITA ZURITA Rep #: [id number] : 1975 Provider: Shira Guadalupe DO Age/Sex: 41/F Location: [facility] [place] Status: Signed Intake Intake Visit Reasons: RIGHT SHOULDER Is patient in pain?: Yes Pain scale (1-10): 7 Allergies codeine Allergy (Verified 04/29/17 13:31) Itching hydrocodone bitartrate [From Vicodin] Allergy (Verified 04/29/17 13:31) Itching Medications Aripiprazole [Abilify] 5 mg PO QHS 07/13/16 [History Confirmed 03/14/17] Lorazepam [Ativan] 0.5 mg PO BID 07/13/16 [History Confirmed 03/14/17] Topiramate [Topamax] 100 mg PO QHS 07/13/16 [History Confirmed 03/14/17] Zolpidem Tartrate [Ambien] 10 mg PO QHS 07/13/16 [History Confirmed 03/14/17] ProMETHAzine [Phenergan] 25 mg PO Q6H PRN PRN #10 tab 03/14/17 [Rx] PFSH Surgical History Status post arthroscopy of hip (Inactive) Social History Smoking Status: Never smoker HPI RIGHT SHOULDER: Details: JULITA ZURITA is a 41 year old F here today for right shoulder. She states about 1 year ago she fell onto her shoulder. She states after that she did complete PT for about 6 weeks which helped but her pain has increased 3 months ago. She complains of constant pain of the entire shoulder. Intermittently has pain down to her forearm. No tingling/numbness. Limited ROM. Occasionally has popping sensation. Denies clicking or catching. She saw Dr. Shweta Gorman (PCP) about 2 months ago who gave her injection but did not help. Did have x-ray within the year but did not bring disc today. ROS Const Reports system reviewed and no additional complaints, except as docu Eyes Reports system reviewed and no additional complaints, except as docu ENT Reports system reviewed and no additional complaints, except as docu Card Reports system reviewed and no additional complaints, except as docu Resp Reports system reviewed and no additional complaints, except as docu GI Reports system reviewed and no additional complaints, except as docu Reports system reviewed and no additional complaints, except as docu Musc Reports joint pain, Reports radiating pain into limb Skin/Breast Reports system reviewed and no additional complaints, except as docu Neuro Yes system reviewed and no additional complaints, except as docu Psych Reports system reviewed and no additional complaints, except as docu Endo Reports system reviewed and no additional complaints, except as docu Madi/Lymph Reports system reviewed and no additional complaints, except as docu Aller/Immun Reports system reviewed and no additional complaints, except as docu Ortho Exam Right Shoulder Contralateral Normal: Yes Testing: Positive Hawkin's, Neer's, TTP Biceps and Yergason's Internal Rotation: T12 SHOULDER: Alert and oriented 3 in no acute distress. Appropriate eye contact and affect. Intact the C5-T2 distributions. She has +2 pulses. Right upper extremity examination shows a positive Kaur and Neer's. Patient has painful supraspinatus testing and infraspinatus testing in the abducted and abducted positions. She has a negative belly press little painful. She has pain with internal rotation to T12. Tender palpation across the biceps with a positive SLAP maneuver positive Langlade's. She has 1+ 1+ [id number]. Nontender palpation across AC joint crepitus with range of motion through the glenohumeral joint early filling of this in the subsequent subacromial space. X-rays: Evaluated myself patient-normal acromiohumeral distance. No AC arthrosis. No glenohumeral changes and is otherwise centered on scapular Y and and axillary view. Left Shoulder Skin/Wound: Yes CDI Contralateral Normal: Yes Testing: Yes AROM-Forward Elevation 0-180, Yes AROM-External Rotation at side 0-60, Yes PROM-External Rotation at side 0-60, Yes AROM-External Rotation at 90 0-60, Yes PROM-Forward Elevation 0-180, Yes PROM-External Rotation at 90 0-60 Internal Rotation: Tip of Scapula Assessment AND Plan Problems 1. Superior glenoid labrum lesion of right shoulder, initial encounter S43.431A 2. Impingement syndrome of right shoulder M75.41 3. Acute pain of right shoulder M25.511 4. Strain of muscle(s) and tendon(s) of the rotator cuff of right shoulder, initial encounter S46.011A Plan Assessment: Right shoulder SLAP lesion right shoulder partial rotator cuff tear, right shoulder impingement, right shoulder pain, right shoulder biceps tendinitis. Plan: At this point time the patient has had an injection through an outside provider roughly 6 weeks ago. Patient reports continued right shoulder pain. I recommendation at this point time having failed conservative measures to include NSAIDs activity modifications physical therapy which she is done in the past and an injection. Is for an MRI of the right upper extremity to evaluate for biceps labral complex injury and rotator cuff pathology. Surgical planning would be considered based on MRI findings. Patient agrees with plan. I am going to resupply the patient with a home shoulder program as I am concerned that she started getting a little bit stiff within the shoulder and I want her to continue to work on range of motion exercises. I will allow her to do rotator cuff strengthening exercises within her comfort range. Again the a AOS shoulder program was provided. Follow-up after MRI completed. Major strength Orders Orders: Coding Level of Care Code Off vis,est,level 4 Diagnoses Superior glenoid labrum lesion of right shoulder, initial encounter S43.431A Encounter type: initial encounter Impingement syndrome of right shoulder M75.41 Acute pain of right shoulder M25.511 Chronicity: acute Strain of muscle(s) and tendon(s) of the rotator cuff of right shoulder, initial encounter S46.011A 04/29/17 1517 <Electronically signed by Shira Guadalupe DO> Date Shira Guadalupe DO Cosignshasta Signature: Date (if applicable) CC: SHOULDER MIN 2 VIEWS Observed: 04/29/2017 Status: F Source: [place] 1:21 PM [facility] REPOSITORY [facility] Imaging Services [address] [place] [address] Shoulder min 2 Views MR#: [id number] Acct: [id number] Name: JULITA ZURITA Rep #: [id number] : 1975 F 41 From: Cruz Alejandra MD PCP: Shweta Gorman Jr., MD Status: REG CLI Study: Shoulder min 2 Views Date of Exam: 04/29/17 Exam# [id number] Ordering Dr: Shira Guadalupe DO STUDY: X-RAY - RIGHT SHOULDER REASON FOR EXAM: Female, 41 years old. Shoulder pain. TECHNIQUE: 3 view(s) of the shoulder. COMPARISON: None. FINDINGS: Normal glenohumeral articulation. Normal acromioclavicular joint. Normal acromion. Normal humeral head and visualized proximal humerus. The soft tissue structures are unremarkable. Normal visualized pulmonary apex. RAD/Shoulder min 2 Views IMPRESSION: Normal x-ray examination of the shoulder. Electronically Signed: Cruz Alejandra MD at 14:26 EST Tel [phone], Service support , CC: Shweta Gorman Jr., MD; Shira Guadalupe DO Kiln Pusher: Signed PROGRESS Observed: 04/10/2017 Status: COMPLETED Source: [place] 1:49 PM [facility] REPOSITORY HNO ID: [id number] Author: Aure (Betzaida) Zakiya Service: (none) Author Type: Nurse Practitioner Type: Progress Notes Filed: 04/10/2017 1:56 PM Note Text: HPI HPI Julita Zurita is a 41 year old female who presents today for CC of cough, congestion and sinus pressure. This started 3 weeks ago. She is also having dental pain. Symptoms are worsened by bending over or lying down. She has tried OTC sinus congestion, cough medicine Risk factors cold symptoms 3 weeks ago, co workers ill. 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, STAPH AUREUS Cervicalgia Sciatica Tension Headache Brachial Neuritis Or Radiculitis NOS Ibs (Irritable Bowel Syndrome) Diarrhea Calf Pain Deviated Septum Family History Problem Relation Age of Onset - Adopted: Yes - Other [Other] [OTHER] Mother depression/ suicide Social History Marital status: Single Spouse name: Years of education: 12 Number of children: 2 Occupational History Occupation Employer Comment homemaker Social History Main Topics Smoking status: Never Smoker Smokeless status: Never Used Alcohol use: Yes Comment: occasional, none recently d/t GERD Drug use: No Sexual activity: Yes control/protection: Surgical Comment: bilateral tubal ligation Review of Systems Constitutional: Negative. Negative for chills, fever and malaise/fatigue. HENT: Positive for congestion and sinus pain. Negative for ear pain and sore throat. Respiratory: Negative for cough, sputum production, shortness of breath and wheezing. Cardiovascular: Negative for chest pain. Musculoskeletal: Negative for myalgias. Skin: Negative for rash. Neurological: Positive for headaches (sinus). Physical Exam Constitutional: She is well-developed, well-nourished, and in no distress. HENT: Head: Normocephalic and atraumatic. Right Ear: External ear and ear canal normal. Tympanic membrane is bulging. Tympanic membrane is not injected, not erythematous and not retracted. A middle ear effusion (serous) is present. Left Ear: External ear and ear canal normal. Tympanic membrane is bulging. Tympanic membrane is not injected, not erythematous and not retracted. A middle ear effusion (serous) is present. Nose: Mucosal edema and rhinorrhea present. Right sinus exhibits maxillary sinus tenderness and frontal sinus tenderness. Left sinus exhibits maxillary sinus tenderness and frontal sinus tenderness. Mouth/Throat: Uvula is midline and mucous membranes are normal. Posterior oropharyngeal erythema present. No oropharyngeal exudate, posterior oropharyngeal edema or tonsillar abscesses. Eyes: Conjunctivae and EOM are normal. Pupils are equal, round, and reactive to light. Neck: Normal range of motion. Cardiovascular: Normal rate, regular rhythm and normal heart sounds. Pulmonary/Chest: Effort normal and breath sounds normal. No respiratory distress. She has no decreased breath sounds. She has no wheezes. She has no rhonchi. She has no rales. Lymphadenopathy: Head (right side): No submental, no submandibular, no tonsillar, no preauricular and no posterior auricular adenopathy present. Head (left side): No submental, no submandibular, no tonsillar, no preauricular and no posterior auricular adenopathy present. She has no cervical adenopathy. Right cervical: No posterior cervical adenopathy present. Left cervical: No posterior cervical adenopathy present. Right: No supraclavicular adenopathy present. Left: No supraclavicular adenopathy present. Skin: Skin is warm and dry. Psychiatric: Affect normal. Nursing note and vitals reviewed. ASSESSMENT/PLAN: 1. Bacterial sinusitis - ICD9: 473.9, 041.9, ICD10: J32.9, B96.89 - Will begin treatment with Augmentin 875 mg PO BID for 10 days - The patient should also be given warm salt water gargles, throat lozenges and/or OTC throat spray as needed and nasal saline gtts and suction prn for the first 5-7 days of treatment. - Supportive care with plenty of fluids, rest, and analgesia prn. - Follow up in one week if symptoms persist or worsen. - Zyrtec 10 mg By mouth daily at bedtime - Flonase 1 spray each nostril two times a day. - -Increase fluid intake. Try to drink at least 8 glasses of non caffeinated fluids daily. --Rest as much as possible. -Do the nasal saline irrigation at least 2 x day to relieve nasal mucous and congestion: brands include Luis Eduardo Med, Simply saline, Robertson nasal spray, or even the generic store brand one is ok. Take the entire course of antibiotics as prescribed. DO NOT stop taking it early, even if you are feeling better. -Practice good hygiene, wash hands frequently. -Monitor for signs of worsening infection: increased temperature, pain in face, ear pain or headaches or increase in nasal congestion/mucous that is not improving. * Seek medical care immediately, call 911, go to ER if you have chest pain, difficulty breathing, shortness of breath, inability to swallow. -Educated patient on side effects of medication. You can take an OTC probiotic such as Culturelle or Align to help with stomach upset/loose stool that you may get as a side effect of the antibiotic. - AMOXICILLIN 875 MG-POTASSIUM CLAVULANATE 125 MG TABLET Diagnosis and treatment plan were discussed and questions were answered to the patient's satisfaction. Pt acknowledged understanding of concepts and follow up plan. Specific signs and symptoms that would indicate the need for higher level of care were discussed in detail warranting prompt ER evaluation. Aure Sigala CNP CNOV Observed: 04/10/2017 Status: COMPLETED Source: [place] 1:15 PM [facility] REPOSITORY Office Visit ([facility]) JULITA ZURITA ([id number]) 1975 F Date Time Provider Department 04/10/17 1:15 PM [facility] During your visit today, we recorded the following information about you: Temperature Pulse Respiration Blood pressure 98.2 degrees 64/minute 15/minute 86/60 Weight 64 kg Aure Sigala CNP 04/10/2017 1:56 PM Signed HPI HPI Julita Zurita is a 41 year old female who presents today for CC of cough, congestion and sinus pressure. This started 3 weeks ago. She is also having dental pain. Symptoms are worsened by bending over or lying down. She has tried OTC sinus congestion, cough medicine Risk factors cold symptoms 3 weeks ago, co workers ill. 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, STAPH AUREUS Cervicalgia Sciatica Tension Headache Brachial Neuritis Or Radiculitis NOS Ibs (Irritable Bowel Syndrome) Diarrhea Calf Pain Deviated Septum Family History Problem Relation Age of Onset - Adopted: Yes - Other [Other] [OTHER] Mother depression/ suicide Social History Marital status: Single Spouse name: Years of education: 12 Number of children: 2 Occupational History Occupation Employer Comment homemaker Social History Main Topics Smoking status: Never Smoker Smokeless status: Never Used Alcohol use: Yes Comment: occasional, none recently d/t GERD Drug use: No Sexual activity: Yes control/protection: Surgical Comment: bilateral tubal ligation Review of Systems Constitutional: Negative. Negative for chills, fever and malaise/fatigue. HENT: Positive for congestion and sinus pain. Negative for ear pain and sore throat. Respiratory: Negative for cough, sputum production, shortness of breath and wheezing. Cardiovascular: Negative for chest pain. Musculoskeletal: Negative for myalgias. Skin: Negative for rash. Neurological: Positive for headaches (sinus). Physical Exam Constitutional: She is well-developed, well-nourished, and in no distress. HENT: Head: Normocephalic and atraumatic. Right Ear: External ear and ear canal normal. Tympanic membrane is bulging. Tympanic membrane is not injected, not erythematous and not retracted. A middle ear effusion (serous) is present. Left Ear: External ear and ear canal normal. Tympanic membrane is bulging. Tympanic membrane is not injected, not erythematous and not retracted. A middle ear effusion (serous) is present. Nose: Mucosal edema and rhinorrhea present. Right sinus exhibits maxillary sinus tenderness and frontal sinus tenderness. Left sinus exhibits maxillary sinus tenderness and frontal sinus tenderness. Mouth/Throat: Uvula is midline and mucous membranes are normal. Posterior oropharyngeal erythema present. No oropharyngeal exudate, posterior oropharyngeal edema or tonsillar abscesses. Eyes: Conjunctivae and EOM are normal. Pupils are equal, round, and reactive to light. Neck: Normal range of motion. Cardiovascular: Normal rate, regular rhythm and normal heart sounds. Pulmonary/Chest: Effort normal and breath sounds normal. No respiratory distress. She has no decreased breath sounds. She has no wheezes. She has no rhonchi. She has no rales. Lymphadenopathy: Head (right side): No submental, no submandibular, no tonsillar, no preauricular and no posterior auricular adenopathy present. Head (left side): No submental, no submandibular, no tonsillar, no preauricular and no posterior auricular adenopathy present. She has no cervical adenopathy. Right cervical: No posterior cervical adenopathy present. Left cervical: No posterior cervical adenopathy present. Right: No supraclavicular adenopathy present. Left: No supraclavicular adenopathy present. Skin: Skin is warm and dry. Psychiatric: Affect normal. Nursing note and vitals reviewed. ASSESSMENT/PLAN: 1. Bacterial sinusitis - ICD9: 473.9, 041.9, ICD10: J32.9, B96.89 - Will begin treatment with Augmentin 875 mg PO BID for 10 days - The patient should also be given warm salt water gargles, throat lozenges and/or OTC throat spray as needed and nasal saline gtts and suction prn for the first 5-7 days of treatment. - Supportive care with plenty of fluids, rest, and analgesia prn. - Follow up in one week if symptoms persist or worsen. - Zyrtec 10 mg By mouth daily at bedtime - Flonase 1 spray each nostril two times a day. - -Increase fluid intake. Try to drink at least 8 glasses of non caffeinated fluids daily. --Rest as much as possible. -Do the nasal saline irrigation at least 2 x day to relieve nasal mucous and congestion: brands include Luis Eduardo Med, Simply saline, Robertson nasal spray, or even the generic store brand one is ok. Take the entire course of antibiotics as prescribed. DO NOT stop taking it early, even if you are feeling better. -Practice good hygiene, wash hands frequently. -Monitor for signs of worsening infection: increased temperature, pain in face, ear pain or headaches or increase in nasal congestion/mucous that is not improving. * Seek medical care immediately, call 911, go to ER if you have chest pain, difficulty breathing, shortness of breath, inability to swallow. -Educated patient on side effects of medication. You can take an OTC probiotic such as Culturelle or Align to help with stomach upset/loose stool that you may get as a side effect of the antibiotic. - AMOXICILLIN 875 MG-POTASSIUM CLAVULANATE 125 MG TABLET Diagnosis and treatment plan were discussed and questions were answered to the patient's satisfaction. Pt acknowledged understanding of concepts and follow up plan. Specific signs and symptoms that would indicate the need for higher level of care were discussed in detail warranting prompt ER evaluation. BETZAIDA Hernandez CNP 04/10/2017 1:55 PM Signed ASSESSMENT/PLAN: 1. Bacterial sinusitis - ICD9: 473.9, 041.9, ICD10: J32.9, B96.89 - Will begin treatment with Augmentin 875 mg PO BID for 10 days - The patient should also be given warm salt water gargles, throat lozenges and/or OTC throat spray as needed and nasal saline gtts and suction prn for the first 5-7 days of treatment. - Supportive care with plenty of fluids, rest, and analgesia prn. - Follow up in one week if symptoms persist or worsen. - Zyrtec 10 mg By mouth daily at bedtime - Flonase 1 spray each nostril two times a day. - -Increase fluid intake. Try to drink at least 8 glasses of non caffeinated fluids daily. --Rest as much as possible. -Do the nasal saline irrigation at least 2 x day to relieve nasal mucous and congestion: brands include Luis Eduardo Med, Simply saline, Robertson nasal spray, or even the generic store brand one is ok. Take the entire course of antibiotics as prescribed. DO NOT stop taking it early, even if you are feeling better. -Practice good hygiene, wash hands frequently. -Monitor for signs of worsening infection: increased temperature, pain in face, ear pain or headaches or increase in nasal congestion/mucous that is not improving. * Seek medical care immediately, call 911, go to ER if you have chest pain, difficulty breathing, shortness of breath, inability to swallow. -Educated patient on side effects of medication. You can take an OTC probiotic such as Culturelle or Align to help with stomach upset/loose stool that you may get as a side effect of the antibiotic. - AMOXICILLIN 875 MG-POTASSIUM CLAVULANATE 125 MG TABLET Referring Provider: SELF [[id number]] Allergies As of Date: 04/10/2017 Noted Allergy Reaction CODEINE 04/18/2006 4 - Hives 9 - Itching Comments: only tylenol with codeine VICODIN (HYDROCODONE-ACETAMINOPHE*03/29/2007 9 - Itching Date Reviewed: 04/10/2017 Reviewed by: Kinjal Loving Callisthenics Instructor - Fully Assessed Reason for Visit: Pain, Sinus [857] Cmt: sinus pressure/drainage on and off x 2 months Cough [28] Cmt: cough and chest congestion x 1 week Primary Visit Diagnosis:Bacterial sinusitis [J32.9, B96.89] Order(s):amoxicillin-clavulanic acid (AUGMENTIN) 875-125 mg per tabletTake 1 tablet by mouth twice daily for 10 days.Disp: 20 tabletRfl: 0 Prescriptions as of 04/10/2017 Sig: LORAZEPAM 0.5 MG TABLET Take by mouth three times da* DEXTROAMPHETAMINE-AMPHETAMINE* Take 10 mg by mouth once amadou* ABILIFY ORAL Take by mouth. AMBIEN ORAL Take by mouth. ALBUTEROL SULFATE HFA 90 MCG/* Inhale 2 Puffs as instructed * FLUTICASONE 50 MCG/ACTUATION * Use 2 Sprays in each nostril * AMOXICILLIN 875 MG-POTASSIUM * Take 1 tablet by mouth twice * CODEINE 10 MG-GUAIFENESIN 100* Take 5 mL by mouth three time* OMEPRAZOLE 20 MG CAPSULE,AMIE* Take 1 capsule by mouth as ne* MECLIZINE 25 MG TABLET Take 1 tablet by mouth three * ONDANSETRON 4 MG DISINTEGRATI* Take 1 tablet by mouth every * ALPRAZOLAM 0.5 MG TABLET Take 0.5 mg by mouth twice da* DICYCLOMINE 20 MG TABLET Take 1 tablet by mouth every * TOPIRAMATE 100 MG TABLET Take 100 mg by mouth three ti* Problem List As Of Date 04/10/2017 Noted Resolved ALLERGIC RHINITIS NOS [J30.9] INVALID FOR* EXTRINSIC ASTHMA UNSPECIFIED [J45.909] INVALID FOR* HEADACHE [R51] INVALID FOR* 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] INVALID FOR* STAPH INFECTION, STAPH AUREUS [A49.01] INVALID FOR* CERVICALGIA [M54.2] INVALID FOR* SCIATICA [M54.30] INVALID FOR* TENSION HEADACHE [G44.209] INVALID FOR* BRACHIAL NEURITIS NOS [M54.12] INVALID FOR* IBS (irritable bowel syndrome) [K58.9] INVALID FOR* Diarrhea [R19.7] INVALID FOR* Calf pain [M79.669] INVALID FOR* Deviated septum [J34.2] INVALID FOR* Esophageal reflux [K21.9] INVALID FOR*03/27/2014 Other instructions from your clinician: ASSESSMENT/PLAN: 1. Bacterial sinusitis - ICD9: 473.9, 041.9, ICD10: J32.9, B96.89 - Will begin treatment with Augmentin 875 mg PO BID for 10 days - The patient should also be given warm salt water gargles, throat lozenges and/or OTC throat spray as needed and nasal saline gtts and suction prn for the first 5-7 days of treatment. - Supportive care with plenty of fluids, rest, and analgesia prn. - Follow up in one week if symptoms persist or worsen. - Zyrtec 10 mg By mouth daily at bedtime - Flonase 1 spray each nostril two times a day. - -Increase fluid intake. Try to drink at least 8 glasses of non caffeinated fluids daily. --Rest as much as possible. -Do the nasal saline irrigation at least 2 x day to relieve nasal mucous and congestion: brands include Luis Eduardo Med, Simply saline, Robertson nasal spray, or even the generic store brand one is ok. Take the entire course of antibiotics as prescribed. DO NOT stop taking it early, even if you are feeling better. -Practice good hygiene, wash hands frequently. -Monitor for signs of worsening infection: increased temperature, pain in face, ear pain or headaches or increase in nasal congestion/mucous that is not improving. * Seek medical care immediately, call 911, go to ER if you have chest pain, difficulty breathing, shortness of breath, inability to swallow. -Educated patient on side effects of medication. You can take an OTC probiotic such as Culturelle or Align to help with stomach upset/loose stool that you may get as a side effect of the antibiotic. - AMOXICILLIN 875 MG-POTASSIUM CLAVULANATE 125 MG TABLET Prescriptions ordered this encounter Disp Refills Start End AMOXICILLIN 875 MG-POTASSIUM CLAVULA* 20 t* 0 04/10/2017 04/20/2017 Route: ORAL Sig: Take 1 tablet by mouth twice daily for 10 days. Encounter Status:Closed by AURE SIGALA CRAYON SORTING MACHINE FEEDER on 04/10/17 XR SHOULDER MINIMUM 2 Observed: 04/01/2017 Status: F Source: [facility] VIEWS RIGHT 11:13 AM [facility] REPOSITORY ORIGINAL XR SHOULDER MINIMUM 2 VIEWS RIGHT, 04/01/2017 11:21 AM INDICATION: acute right shoulder pain COMPARISON: No FINDINGS: There are no acute fractures or dislocations. Alignment is within normal limits. Joint spaces are maintained. The soft tissues are unremarkable. IMPRESSION: Unremarkable examination. Interpreted By: Talon Saucedo MD Preliminary Report By: Talon Saucedo MD Electronically Signed By: Talon Saucedo MD Dictated Date: 04/01/2017 11:22:47 AM Prelim Date: 04/01/2017 11:22:47 AM Sign Date: 04/01/2017 11:23:28 AM 12 LEAD ELECTROCARDIOGRAM Observed: 03/16/2017 Status: F Source: [place] 2:20 PM [facility] REPOSITORY [facility] Cardiovascular Services [address] [place] [address] 12 Lead EKG 03/14/17 1024 MR#: [id number] Acct: [id number] Name: JULITA ZURITA Rep #: [id number] : 1975 41 From: Rodrigo Regalado MD Attending Dr: Status: DEP ER Ordering Dr: Gena Macario MD Date: 03/14/17 Location: ED Sex: F C Admitted: Test Reason : N/V, DIZZINESS Blood Pressure : / mmHG Vent. Rate : 089 BPM Atrial Rate : 089 BPM P-R Int : 142 ms QRS Dur : 082 ms QT Int : 354 ms P-R-T Axes : 076 072 261 degrees QTc Int : 430 ms Normal sinus rhythm ST AND T wave abnormality, consider inferior ischemia ST AND T wave abnormality, consider anterolateral ischemia Abnormal ECG Confirmed by RODRIGO REGALADO MD ([id number]), photograph editor GERBER MATHIAS ([id number]) on 03/16/2017 2:20:21 PM Referred By: DAMIEN Confirmed By:RODRIGO REGALADO MD 03/16/17 1420 Date Rodrigo Regalado MD CC: Shweta Gorman Jr., MD Signed EMERGENCY DEPARTMENT Observed: 03/14/2017 Status: F Source: [place] SUMMARY 5:29 PM [facility] REPOSITORY [facility] Medical Records Department [address] [place] [address] Emergency Department Summary 03/14/17 1024 MR#: [id number] Acct: [id number] Name: JULITA ZURITA Rep #: [id number] : 1975 41 From: Gena Macario MD PCP: Shweta Gorman Jr., MD Status: DEP ER - ER Visit Summary Date of Service: 03/14/17 Chief Complaint: Nausea, vomiting, diarrhea History of Present Illness: The patient is a 41 F presenting with nausea, vomiting, diarrhea. States that this started yesterday. She complains of mild diffuse abdominal cramping. She complains of lightheadedness which is worse when she stands. Denies blood in her stool or emesis. No recent antibiotics, travel, or sick contacts. Denies fever. Denies chest pain or shortness of breath. Physical Examination: Vitals are stable. Patient is afebrile. Alert no acute distress. HEENT exam is unremarkable. Neck is supple. Lungs are clear and equal bilaterally. Heart is regular rate and rhythm. Abdomen is soft nontender nondistended. No guarding or rebound Extremities are unremarkable. Skin is warm and dry. No focal neurologic deficit. Remainder of exam is unremarkable. Emergency Department Course and Treatment: Patient is given IV fluids, Phenergan. CBC, chemistries unremarkable. Troponin is negative. EKG is sinus rate of 89 with inferolateral T-wave inversion. This is unchanged from previous EKG 2014. Her orthostatic vital signs were negative but she did have increase of her pulse when she stood. She is feeling improved following fluids and medication. She is able to tolerate p.o. in the emergency department. She is given a prescription for Phenergan for home. Advised follow-up with primary care physician. Advised return to ED with worsening complaints. Disposition: Discharge home Impression: Vomiting and diarrhea This note was generated with [employer] dictation software. It may contain incorrect words, spelling, and punctuation that were not noted in review of the chart prior to signing ED Disposition - Plan for ED Patient: Chief Complaint: Nausea/Vomiting Referrals: Shweta Gorman Jr., MD [Primary Care Provider] - What to do if you have Problems For any increased pain, shortness of breath, bleeding, nausea or vomiting, chest pain, or any unexpected problems, contact your Primary Care Provider. Call [facility] ([phone]) or report to the closest Emergency Room. Call 911 if necessary. 03/14/17 1729 <Electronically signed by Gena Macario MD> Date Gena Macario MD Cosigner Signature (If Indicated): Date CC: Shweta Gorman Jr., MD DISCHARGE INSTRUCTION Observed: 03/14/2017 Status: Source: [place] 12:51 PM [facility] REPOSITORY [facility] Medical Records Department [address] [place] [address] Discharge Instruction 03/14/17 1250 MR#: [id number] Acct: [id number] Name: JULITA ZURITA Rep #: [id number] : 1975 41 From: Gena Macario MD PCP: Shweta Gorman Jr., MD Status: REG ER ED Disposition - Plan for ED Patient: Chief Complaint: Nausea/Vomiting Instructions: ED Nausea Vomiting Prescriptions: ProMETHAzine [Phenergan] 25 mg PO Q6H PRN PRN #10 tablet PRN Reason: Nausea Referrals: Shweta Gorman Jr., MD [Primary Care Provider] - What to do if you have Problems For any increased pain, shortness of breath, bleeding, nausea or vomiting, chest pain, or any unexpected problems, contact your Primary Care Provider. Call [facility] ([phone]) or report to the closest Emergency Room. Call 911 if necessary. 03/14/17 1251 <Electronically signed by Gena Macario MD> Date Gena Macario MD Cosigner Signature (If Indicated): Date CC: Shweta Gorman Jr., MD CBC W/DIFF, AUTOMATED Collected: 03/14/2017 Status: F Source: [place] 10:50 AM [facility] REPOSITORY TYPE CODE TESTS RESULT OUT OF RANGE REFERENCE UNITS LAB L100.1000 4.4-11.0 K/mm3 Normal WBC 4.8 LAB L100.1200 4.2-5.4 M/mm3 Low RBC 4.06 LAB L100.1300 12.0-15.0 g/dl Normal HGB 13.1 LAB L100.1400 37-47 % Normal HCT 38.3 LAB L100.1500 81-99 fL Normal MCV 94.3 LAB L100.1600 27.0-32.0 pg High MCH 32.3 LAB L100.1700 32-36 g/gl Normal MCHC 34.2 LAB L100.1810 11.6-14.6 % Normal RDW CV 11.8 LAB L100.1820 35.1-43.9 fl Normal RDW SD 40.5 LAB L100.1900 150-450 K/mm3 Normal PLT 211 LAB L100.2000 6.2-12.0 fl Normal MPV 9.6 LAB L100.2100 47-70 % High NEUT% 78.6 LAB L100.2200 19-41 % Low LY% 14.2 LAB L100.2300 0-10 % Normal MONO% 5.6 LAB L100.2400 0-5 % Normal EO% 1.0 LAB L100.2500 0-1 % Normal BASO% 0.4 LAB L100.2550 0.0-0.9 % Normal IM GRAN % 0.200 Result Comment: IG% - Immature Granulocytes (promyelocytes, myelocytes and metamyelocytes) > 1% indicates that a LEFT SHIFT is Present. LAB L100.2620 2.0-7.7 X10 3/uL Normal Absolute Neut 3.8 LAB L100.2720 0.83-4.51 X10 3/ul Low Absolute Lymph 0.68 Performed By: #### L100.0100 #### [facility] [address] [place], [address] BASIC METABOLIC Collected: 03/14/2017 Status: F Source: [place] PROFILE (BMP) 10:50 AM [facility] REPOSITORY Order Comment: 'TROP' Serial specimen #1, #2, #3, or #4: 1 TYPE CODE TESTS RESULT OUT OF RANGE REFERENCE UNITS LAB L501.0100 70-110 mg/dL Normal GLU 109 LAB L501.1000 7-18 mg/dL Normal BUN 13 LAB L501.1100 0.55-1.02 mg/dL Normal 0.72 CREAT,SERUM Result Comment: The validity of the calculated GFR AND GFRAA in patients over 70 years has not been determined. Clinical correlation is essential. LAB L501.1110 >60 mL/min Normal EST GFR 95 Result Comment: Non- GFR Calc LAB L501.1115 >60 mL/min Normal EST GFR - AA 114 Result Comment: GFR Calc LAB L501.1255 ml/min Normal Estimated CRCL 90.66 LAB L501.1300 10-20 RATIO Normal BUN/CRE 18.2 LAB L501.2200 8.5-10 mg/dL Low .1 CA 8.4 LAB L501.5300 136-14 mmol/L Normal 5 NA 140 LAB L501.5600 3.5-5. mmol/L Low 1 K 3.4 LAB L501.5900 98-107 mmol/L Normal CL 107 LAB L501.6100 21.0-3 mmol/L Normal 2.0 CO2 23.0 LAB L501.6200 5-15 Normal GAP 10 Performed By: #### L500.2500, L501.4010 #### [facility] [address] [place], [address] TROPONIN-I Collected: 03/14/2017 Status: F Source: [place] 10:50 AM [facility] REPOSITORY Order Comment: 'TROP' Serial specimen #1, #2, #3, or #4: 1 TYPE CODE TESTS RESULT OUT OF RANGE REFERENCE UNITS LAB L501.4010 <0.06 ng/mL Normal < 0.02 TROPONIN-I Result Comment: TROPONIN-I EXPECTED VALUES <0.05 NEGATIVE 0.06 - 0.59 AT RISK OF [place] > OR = 0.60 SUGGEST [place] Performed By: #### L500.2500, L501.4010 #### [facility] [address] [place], [address] XR ABDOMEN SERIES Observed: 03/03/2017 Status: F Source: [place] W/CHEST 1 VIEW 3:28 PM [facility] REPOSITORY ORIGINAL XR ABDOMEN SERIES W/CHEST 1 VIEW , 3 views CLINICAL STATEMENT: Constipation, Acute COMPARISON: None FINDINGS: Frontal chest shows hyperexpanded lungs which are otherwise clear. Normal heart size. Bowel gas pattern is normal with no sign of obstruction or perforation. No visible calculi. Multiple pelvic phleboliths. There is only a small amount of stool within the colon and rectum. IMPRESSION: No significant fecal loading of the colon. No acute findings. Evaluate further as clinically warranted. Interpreted By: Alvin Mendiola MD Preliminary Report By: Alvin Mendiola MD Electronically Signed By: Alvin Mendiola MD Dictated Date: 03/04/2017 11:33:50 AM Prelim Date: 03/04/2017 11:33:50 AM Sign Date: 03/04/2017 11:34:41 AM ALLERGIES ALLERGIES DATE TYPE / CODE NAME / CODE REACTION SEVERITY SOURCE 02/07/2018 Drug hydrocodone Itching Unknown [place] Allergy/416 bitartrate/[id number] [facility] 650075([place] [address](RXNO) [facility] ED CT) Repository 02/07/2018 Drug codeine/[id number] Itching Unknown [place] Allergy/416 (RXNORM) [facility] 634656([facility] ED CT) Repository 03/29/2007 DRUG/[id number] HYDROCODONE-ACETAM ITCHING [facility] 003(SNOMED INOPHEN [facility]) Repository 04/18/2006 DRUG CODEINE HIVES [facility] INGREDI/419 [facility] 003317([facility] Repository ED CT) ENCOUNTERS ENCOUNTERS ADMIT/DISCHARGE ACCOUNT NUMBER ADMITTING ENCOUNTER LOCATION SOURCE CLASS 02/07/2018/02/08/20 [id number] Emergency [address] ding:ED Repository 12/28/2017/12/30/19 [id number] Ambulatory [address] Repository 12/09/2017/12/13/19 [id number] Ambulatory [address] [facility] Repository 11/25/2017/11/29/19 [id number] Ambulatory [address] [facility] Repository 11/22/2017/11/23/19 [id number] Emergency BBuilding:SHASTA BeckfordWendy [address] [place] [address] Repository 11/18/2017/11/22/19 [id number] Ambulatory [address] [facility] Repository 11/07/2017/11/09/19 [id number] Ambulatory [address] [facility] Repository 10/07/2017/10/08/19 [id number] Ambulatory [address] [facility] Repository 10/07/2017/10/11/19 [id number] Ambulatory [address] Repository 10/03/2017 [id number] Ambulatory [facility] ding:OT Repository 09/28/2017/09/30/19 [id number] Ambulatory [address] Repository 09/25/2017/09/26/19 [id number] Emergency [address] ding:ED Repository 09/22/2017/09/23/19 [id number] Ambulatory BMSBuilding: Shira 18 [facility] Repository 09/14/2017/09/15/19 [id number] Emergency [address] ding:ED Repository 09/12/2017/09/13/19 [id number] Ambulatory BMSBuilding: [place] 18 [facility] Repository 08/23/2017/08/25/19 [id number] Ambulatory [address] Repository 08/20/2017/08/24/19 [id number] Ambulatory [address] Repository 07/22/2017/07/26/19 [id number] Ambulatory [address] Repository 06/08/2017/06/09/19 [id number] Ambulatory BMSBuilding: Shira 18 [facility] Repository 05/26/2017 [id number] Ambulatory [facility] ding:MRI Repository 05/18/2017/05/19/19 [id number] Emergency BBuilding:SHASTA Sorensen [address] [place] [address] Repository 04/29/2017 [id number] [facility] Repository 04/29/2017/04/29/19 [id number] Ambulatory BMSBuilding: [place] 18 [facility] Repository 04/10/2017/04/10/19 [id number] Ambulatory [address] Repository 04/01/2017/04/01/19 [id number] Ambulatory WENDY Wendy 18 [facility] ding:[facility] Repository 03/14/2017/03/14/19 [id number] Emergency [place] 18 [facility] ding:ED Repository 03/03/2017/03/03/20 [id number] Ambulatory [place] 17 ing:[facility] Repository PAYERS PAYERS ENCOUNTER GUARANTOR PAYER SUBSCRIBER SOURCE 02/07/2018 JULITA A [facility]CAR[facility]OURCEP [facility] Number: [id number] [id number] Repository [address]Pdn: (330) Date:2018-02-07P O [phone] () [address]ATTN: [place] [address]ZJ: 02/07/2018 Secondary NOT GIVENUNK [place] Insurance:SELF PAY [facility] Number: Effective Repository Date:2018-02-07 11/22/2017 JULITA A [facility] Insurance:CARESOURCE GALLIHERDOB: [facility] MEDICAIDPolicy [id number] Repository [facility] Number: [facility] [address] [place] [address] [id number] [place] [address] 56570Zbg: (330) Date:2017-11-22 01995Ood: (HP) [phone] [phone] Name:X[address] Box (HP)Tel: 000) [address], [place] [address] () [address]OW: 10/03/2017 JULITA A Primary JULITA A [place] [id number] E Insurance:CARESOURCEP GALLIHERDOB: [facility] PANFILO bain Number: [id number] [id number] Repository [address]Hyy: (330) Date:2012-09-11P O [phone] () [address]ATTN: [place] [address]MG: 10/03/2017 Secondary NOT GIVENUNK [place] Insurance:SELF PAY [facility] Number: Effective Repository Date:2017-09-22 09/25/2017 JULITA A Primary JULITA A [place] [id number] E Insurance:CARESOURCEP GALLIHERDOB: [facility] PANFILO bain Number: [id number] [id number] Repository [address]Ihh: (330) Date:2017-09-25P O [phone] () [address]ATTN: [place] [address]MK: 09/25/2017 Secondary NOT GIVENUNK [place] Insurance:SELF PAY [facility] Number: Effective Repository Date:2017-09-25 09/22/2017 JULITA A Primary JULITA A [place] [id number] E Insurance:CARESOURCEP LIANEERDOB: [facility] PANFILO bain Number: [id number] [id number] Repository [address]Umd: ([phone]) Date:2017-09-15P O [phone] () [address]ATTN: [place] [address]FM: 09/22/2017 Secondary NOT GIVENUNK [place] Insurance:SELF PAY [facility] Number: Effective Repository Date:2017-09-22 09/14/2017 JULITA A Primary JULITA A [place] [id number] E Insurance:CARESOURCEP GALLIHERDOB: [facility] olicy Number: [id number] [id number] Repository [address]Whi: (330) Date:2017-09-14P O [phone] () [address]ATTN: [place] [address]TW: 09/14/2017 Secondary NOT GIVENUNK [place] Insurance:SELF PAY [facility] Number: Effective Repository Date:2017-09-14 09/12/2017 JULITA A Primary JULITA A [place] [id number] E Insurance:CARESOURCEP GALLIHERDOB: [facility] PANFILO adkinsy Number: [id number] [id number] Repository [address]Xzo: (330) Date:2017-09-05P O [phone] () [address]ATTN: [place] [address]FM: 09/12/2017 Secondary NOT GIVENUNK [place] Insurance:SELF PAY [facility] Number: Effective Repository Date:2017-09-12 06/08/2017 JULITA A Primary JULITA A [place] [id number] E Insurance:CARESOURCEP DESIRAEIHERDOB: [facility] PANFILO adkinsy Number: [id number] [id number] Repository [address]Isc: ([phone]) Date:2017-06-03P O [phone] () [address]ATTN: [place] [address]QP: 06/08/2017 Secondary NOT GIVENUNK [place] Insurance:SELF PAY [facility] Number: Effective Repository Date:2017-06-08 05/26/2017 JULITA A Primary JULITA A [place] [id number] E Insurance:CARESOURCEP GALLIHERDOB: [facility] PANFILO bakery Number: [id number] [id number] Repository [address]Jfb: ([phone]) Date:2017-05-18P O [phone] (HP) [address]ATTN: [place] [address]UV: 05/26/2017 Secondary NOT GIVENUNK [place] Insurance:SELF PAY [facility] Number: Effective Repository Date:2017-05-18 05/18/2017 JULITA A Primary [facility] A [facility] Insurance:CARESOURCE [facility]: [facility] MEDICAIDPolicy [id number] Repository [facility] Number: [facility] [address] [place] [id number] [place] [address] Date:2017-05-18 94842Wgt: [phone] [id number] () Name:O [address] [address]PA: 04/29/2017 JULITA A Primary JULITA A [place] [id number] E Insurance:CARESOURCEP [facility]: [facility] Number: [id number] [id number] Repository [address]Bmk: (615) Date:2017-04-29 O [phone] () [address]ATTN: [place] [address]HJ: 04/29/2017 Secondary NOT GIVENUNK [place] Insurance:SELF PAY [facility] Number: Effective Repository Date:2017-04-29 04/29/2017 JULITA A Primary JULITA A [place] [id number] E Insurance:CARESOURCEP [facility]: [facility] Number: [id number] [id number] Repository [address]Fsx: (330) Date:2017-04-19 O [phone] () [address]ATTN: [place] [address]SD: 04/29/2017 Secondary NOT GIVENUNK [place] Insurance:SELF PAY [facility] Number: Effective Repository Date:2017-04-19 04/01/2017 JULITA A Primary JULITA A [facility] Insurance:CARESOURCE [facility]: [facility] MEDICAIDPolicy [id number] Repository [facility] Number: [facility]Y [place] [address] [place] [id number] [address], [place] [address]Ohq: (330) Date:2017-04-0117773Brp: (HP) [id number] [phone] Name:[address] ()Tel: (000) 83[address], [place] [address] (WP) [address]NR: 03/14/2017 Julita A Primary Julita A [place] [id number] E Insurance:CAREURCEP [facility] Number: [id number] [id number] Repository [address]Sby: (330) Date:2017-03-14 O [phone] () [address]ATTN: [place] [address]QO: 03/14/2017 Secondary NOT GIVENUNK [place] Insurance:SELF PAY [facility] Number: Effective Repository Date:2017-03-14 03/03/2017 JULITA A Primary JULITA A [facility]: Insurance:CARESOURCE [facility]: [facility] MEDICAIDPolicy [id number] Repository [facility] Number: [facility] [place], [place] [id number] [address], [place] [address]Vky: (330) Date:2017-03-03 [id number]: (HP) [phone] [phone] Name:[address] (HP)Tel: (000) [place], [place] [address] (WP) [address]AU:
== END 2018-02-07 11:03 | disposition home or self-care (01) ==
LOC: ED 08:58
PROVIDERS: Emergency Provider Emergency Medicine
DX: S30.0XXA Contusion of lower back and pelvis, initial encounter (principal); Z79.899 Other long term (current) drug therapy; W00.1XXA Fall from stairs and steps due to ice and snow, initial encounter; Y93.01 Activity, walking, marching and hiking; Y92.89 Other specified places as the place of occurrence of the external cause; Y99.8 Other external cause status
CPT/HCPCS: 72100; 99283

== ENCOUNTER 2018-08-20 15:20 | Emergency (ER) | payer MEDICAID, SELFPAY ==
[2018-08-20 15:21] VITALS: BP 126/66; PULSE 98; RESP 15; TEMP 36.7; BMI 29.2
--- NOTE | 2018-08-20 15:48 | CT_ITS ---
STUDY: CT SOFT TISSUE NECK WITH CONTRAST REASON FOR EXAM: Female, 43 years old. SORE THROAT AND RIGHT EAR PAIN X DAYS RADIATION DOSAGE (If Supplied By Facility): CTDIvol = ( 18.48 ) mGy, DLP = ( 563.17 ) mGycm TECHNIQUE: The patient was scanned in a multi-detector CT scanner. High resolution transaxial imaging was performed following intravenous administration of 100 IV Isovue 300. Sagittal and coronal images were reconstructed. Individualized dose optimization techniques were used for this CT. COMPARISON: None. FINDINGS: Normal bilateral parotid glands. Normal bilateral chemical operations specialist spaces. Normal bilateral parapharyngeal spaces. Normal bilateral carotid spaces. Normal bilateral sublingual and submandibular glands and spaces. Normal visualized nasopharynx. Normal retropharyngeal space. Normal perivertebral space. Normal visualized bilateral faucial tonsils. The visualized tongue, tongue base and oropharynx are normal. The visualized cervical lymph nodes (levels I-) are within normal size limits, and maintain normal morphology. There is no demonstrated solid or cystic mass lesion. There is no abnormal contrast enhancement. Normal epiglottis, bilateral vallecula and hypopharynx. The pre-epiglottic and paraglottic adipose spaces are normal. Normal visualized bilateral piriform sinuses, aryepiglottic folds, vocal cords, and arytenoid-cricoid articulations. Normal subglottic trachea. Normal bilateral lobes of the thyroid gland. Normal visualized pulmonary apices. Normal visualized paranasal sinuses. Normal visualized cervical spine. CT/Soft Tissue Neck WITH Contrast IMPRESSION: Normal enhanced CT examination of the soft tissues of the neck. Electronically Signed: David Post MD at 17:17 EDT , Service support ,
[2018-08-20 16:11] LABS: Absolute Neutrophil Count 2.8 X10^3/uL (2.0-7.7); Basophil# 0.03 X10^3/uL; Basophil% 0.6 % (0-1); Eosinophil# 0.07 X10^3/uL; Eosinophils% 1.4 % (0-5); Hematocrit 38.7 % (37-47); Hemoglobin 13.2 g/dl (12.0-15.0); Lymphocyte % 38.2 % (19-41); Mean Corp Hgb Conc 34.1 g/gl (32-36); Mean Corpuscular Hgb 31.3 pg (27.0-32.0); Mean Corpuscular Volume 91.7 fL (81-99); Mean Platelet Vol. 10.2 fl (6.2-12.0); Monocyte# 0.17 X10^3/uL; Monocyte% 3.4 % (0-10); Neutrophil # 2.81 X10^3/uL (2.7-7.7); Neutrophil % 56.4 % (47-70); POSITIVE COUNT NO; POSITIVE DIFFERENTIAL NO; POSITIVE MORPHOLOGY NO; Platelet Count 239 K/mm3 (150-450); RBC Distribution Width CV 12.3 % (11.6-14.6); RBC Distribution Width SD 41.5 fl (35.1-43.9); Red Blood Count 4.22 M/mm3 (4.2-5.4)
[2018-08-20 16:25] LABS: Anion Gap 6 (5-15); BUN 19 mg/dL (7-18); BUN/Creat Ratio 18.6 RATIO (10-20); Calcium,Total 8.4 mg/dL (8.5-10.1); Chloride 113 mmol/L (98-107); Creatinine, Serum 1.02 mg/dL (0.55-1.02); EST Glomerular Filtration Rate 62 mL/min (>60); Est Glom Filt Rate - Afr Amer 75 mL/min (>60); Estimated Creatinine Clearance 62.67 ml/min; Glucose 128 mg/dL (74-106); Potassium 3.6 mmol/L (3.5-5.1); Sodium Level 141 mmol/L (136-145)
--- NOTE | 2018-08-20 18:54 | ED.DCSUM_ITS ---
- ER Visit Summary Date of Service: 08/20/18 Chief Complaint: [Right ear pain and throat pain] History of Present Illness: The patient is a 43 F presents with symptoms that started 3 weeks ago. Patient states that at times her voice is hoarse. Patient was seen by primary care physician and diagnosed with an ear infection on August 03 and was on amoxicillin but really did not get any better so than she saw Dr. Rosario is her primary care physician who said she may have some fluid behind her ear but offer no further treatment. Last week patient was seen by her ear nose and throat physician and it was thought that she may have a throat infection so she was started on a antibiotic that she thinks might be clindamycin. Patient continues to have pain and pain with swallowing. She denies any chest pain or shortness of breath. She denies any fevers. [] Physical Examination: [HEENT-PERRLA, EOMI. Cranial nerves II through XII grossly intact. TMs clear. Mucous membranes moist. No adenopathy. Mild pharyngeal erythema noted. Uvula midline. No trismus. Cardiovascular-regular rate and rhythm without murmur or ectopy Lungs-clear to auscultation, chest wall stable without crepitus or subcu emphysema Abdomen-normoactive bowel sounds, soft, nontender, no rebound or rigidity, no peritoneal signs. Extremities-intact ?4, normal range of motion, normal pulses, atraumatic] Test Results: [CBC with it was normal. Chemistries were normal. CT scan of the soft tissue neck with IV contrast was normal.] Emergency Department Course and Treatment: [Case was discussed with Dr. Winters who is rural health consultant for ENT who asked the patient follow-up with our office.] Treatment Plan: [Patient will be given a prescription for a few [employer] for severe pain and advised to follow-up with ENT] Disposition: [Discharged home stable condition] Impression: [Ear pain-etiology uncertain Throat pain] This note was generated with [employer] dictation software. It may contain incorrect words, spelling, and punctuation that were not noted in review of the chart prior to signing ED Disposition - Plan for ED Patient: Referrals: Margaret Ortiz MD [Primary Care Provider] -
--- NOTE | 2018-08-20 18:54 | ED.DEP ---
ED Disposition - Plan for ED Patient: Instructions: ED Strep Pharyngitis Poss Prescriptions: Oxycodone HCl/Acetaminophen [Percocet 5/325] 1 tab PO Q6H PRN PRN 3 Days #12 tab PRN Reason: Pain Referrals: Margaret Ortiz MD [Primary Care Provider] - Honorio Albrecht MD [STAFF PHYSICIAN] - 3-5 Days
[2018-08-20 19:05] VITALS: BP 130/64; PULSE 78; RESP 16; O2SAT 99
[2018-08-20] MEDS: oxyCODONE 5 MG Tablet 20 MG PO (19:15)
== END 2018-08-20 19:15 | disposition home or self-care (01) ==
PROVIDERS: Emergency Provider Emergency Medicine; Family Provider Internal Medicine; PCP Internal Medicine
DX: H92.01 Otalgia, right ear (principal); R07.0 Pain in throat
CPT/HCPCS: 70491; 80048; 85025; 99283; Q9967; A4216

== ENCOUNTER → 2018-10-02 | Outpatient (CLI) | payer MEDICAID, SELFPAY | END | disposition home or self-care (01) | LOC: LABSPEC 15:40 | PROVIDERS: Family Provider Internal Medicine; PCP Internal Medicine; Referring Provider Otolaryngology Otolaryngology/Facial Plastic Surgery; Visit Provider Otolaryngology Otolaryngology/Facial Plastic Surgery | DX: J20.9 Acute bronchitis, unspecified (principal) | CPT/HCPCS: 87070 ==

== ENCOUNTER 2018-10-27 19:18 | Emergency (ER) | payer MEDICAID, SELFPAY ==
[2018-10-27 19:20] VITALS: BP 151/72; PULSE 89; RESP 18; TEMP 36.7; O2SAT 96; BMI 27.1
--- NOTE | 2018-10-27 19:47 | ED.DCSUM_ITS ---
History of Present Illness Chief Complaint: Nausea/Vomiting Informant: Patient Onset: Weeks Context: Gradual Onset Timing: Waxes and wanes Current Severity: Moderate Maximum Severity: Moderate Narrative: Patient presents with a several week history of nausea and dry heaves. She states she had been constipated but took something over the counter was able to have a bowel movement yesterday. She was seen by her PCP and given Zofran but this is not helping. She states she always feels hot but does not believe she has a fever. Past Medical History - Allergies and Home Meds Allergies/Adverse Reactions: Allergies codeine Allergy (Verified 10/27/18 19:22) Itching hydrocodone bitartrate [From Vicodin] Allergy (Verified 10/27/18 19:22) Itching Primary Care Physician: Margaret Ortiz MD [Primary Care Provider] - Prior records reviewed: Yes Past Medical History: - - Reviewed Smoking Status: Never smoker Review of Systems General: Denies: Chills, Fever Eyes: Denies: Visual changes - bilaterally ENT: Denies: Bilateral ear pain Cardiovascular: Denies: Chest pain Respiratory: Denies: Dyspnea Gastrointestinal: Reports: Nausea, Vomiting Genitourinary: Denies: Dysuria Musculoskeletal: Denies: Back pain Skin: Denies: Rash Neurological: Denies: Headache Psych: Reports: Anxiety Endocrine: Reports: Polydipsia. Denies: Polyuria Hematologic: Denies: Easy bruising Allergy: Denies: Uticaria Physical Exam Vital Signs/Narrative: Vital Signs Temp Pulse Resp BP Pulse Ox 10/27/18 19:20 98.0 F 89 18 151/72 H 96 Inital Vital Signs reviewed: Yes General: Well nourished, Well developed Head: Normocephalic Eyes: Perrl, EOMI ENT: Moist mucous membranes Neck: Supple Cardiovascular: Regular rate, Regular rhythm Respiratory: No distress, CTA bilaterally Abdomen: Soft, Nontender, Normal bowel sounds Extremities: Nontender, No edema Skin: Normal color Neurological: Alert, Oriented x3 Psychological: Tearful Diagnostic/Tx/Re-eval Laboratory Results 10/27/18 10/27/18 10/27/18 19:55 19:55 20:25 WBC 7.2 RBC 4.13 L Hgb 12.9 Hct 38.2 MCV 92.5 MCH 31.2 MCHC 33.8 RDW Std Deviation 40.3 RDW Coeff of Gregory 11.8 Plt Count 235 MPV 10.4 Immature Gran % (Auto) 0.100 Neut % (Auto) 59.3 Lymph % (Auto) 34.8 [place] % (Auto) 4.6 Eos % (Auto) 0.6 Baso % (Auto) 0.6 Absolute Neuts (auto) 4.2 Absolute Lymphs (auto) 2.49 Nucleated RBC % 0 Sodium 138 Potassium 3.5 Chloride 109 H Carbon Dioxide 23.0 Anion Gap 6 BUN 13 Creatinine 0.89 Estim Creat Clear Calc 71.83 Est GFR (MDRD) Af Amer 88 Est GFR (MDRD) Non-Af 73 BUN/Creatinine Ratio 14.6 Glucose 96 Calcium 8.9 Total Bilirubin 0.40 Direct Bilirubin 0.12 AST 25 ALT 43 Alkaline Phosphatase 105 Total Protein 7.8 Albumin 3.9 Globulin 3.9 Lipase 110 TSH 3.13 Urine Color Straw Urine Clarity Clear Urine pH 7.0 Ur Specific [place] 1.010 Urine Protein Negative Urine Glucose (UA) Normal Urine Ketones Negative Urine Occult Blood Negative Urine Nitrite Negative Urine Bilirubin Negative Urine Urobilinogen Normal Ur Leukocyte Esterase Negative Urine RBC 0 SEEN Urine WBC 0 SEEN Ur Squamous Epith Cells 0-5 SEEN Urine Bacteria 0 SEEN Urine Mucus 0 SEEN - Medical Decision Making Repeat evaluation she is resting comfortable. She does feel that her nausea is improved. She be given a prescription for Phenergan at home. She is to follow- up with her primary care physician. It is noted that there was concern on the patient that her symptoms may be secondary to anxiety as she is coming up on the anniversary of the of a loved one. This may certainly be a possibility. Patient is reassured that her blood work at this time is unremarkable. ED Disposition - Plan for ED Patient: Disposition: Home or Assisted Living Diagnosis: Nausea Instructions: VOMITING (4y-Adult) Prescriptions: proMETHazine tablet [Phenergan] 25 mg PO Q6H PRN PRN #10 tablet PRN Reason: Nausea Referrals: Margaret Ortiz MD [Primary Care Provider] - 1-2 Weeks
[2018-10-27 19:51] VITALS: BP 148/71; PULSE 80; RESP 17; O2SAT 97
[2018-10-27] MEDS: 0.9% Normal Saline 1,000 ML 1000 ML IV (20:01)
[2018-10-27] MEDS: 0.9% Normal Saline 1,000 ML 150 ML IV (20:02)
[2018-10-27] MEDS: proMETHazine 25 MG/ML Syringe 12.5 MG IV (20:02)
[2018-10-27 20:03] LABS: Absolute Lymphocyte Count 2.49 X10^3/uL (0.83-4.51); Absolute Neutrophil Count 4.2 X10^3/uL (2.0-7.7); Basophil# 0.04 X10^3/uL; Basophil% 0.6 % (0-1); Eosinophil# 0.04 X10^3/uL; Eosinophils% 0.6 % (0-5); Hematocrit 38.2 % (37-47); Hemoglobin 12.9 g/dL (12.0-15.0); Lymphocyte # 2.49 X10^3/ul (4.0); Lymphocyte % 34.8 % (19-41); Mean Corp Hgb Conc 33.8 g/dL (32-36); Mean Corpuscular Hgb 31.2 pg (27.0-32.0); Mean Corpuscular Volume 92.5 fL (81-99); Mean Platelet Vol. 10.4 fl (6.2-12.0); Monocyte# 0.33 X10^3/uL; Monocyte% 4.6 % (0-10); NRBC Flagged by Analyzer 0 % (0-5); Neutrophil # 4.24 X10^3/uL (2.7-7.7); Neutrophil % 59.3 % (47-70); Platelet Count 235 K/mm3 (150-450); RBC Distribution Width CV 11.8 % (11.6-14.6); RBC Distribution Width SD 40.3 fl (35.1-43.9); Red Blood Count 4.13 M/mm3 (4.2-5.4); White Blood Count 7.2 K/mm3 (4.4-11.0)
[2018-10-27 20:32] LABS: AST(SGOT) 25 U/L (15-37); Alanine Aminotransfer ALT/SGPT 43 U/L (13-56); Albumin, Serum 3.9 g/dL (3.2-5.0); Alkaline Phosphatase 105 U/L (45-117); Anion Gap 6 (5-15); BUN 13 mg/dL (7-18); BUN/Creat Ratio 14.6 RATIO (10-20); Bilirubin, Direct 0.12 mg/dL (0.00-0.30); Calcium,Total 8.9 mg/dL (8.5-10.1); Chloride 109 mmol/L (98-107); Creatinine, Serum 0.89 mg/dL (0.55-1.02); EST Glomerular Filtration Rate 73 mL/min (>60); Est Glom Filt Rate - Afr Amer 88 mL/min (>60); Estimated Creatinine Clearance 71.83 ml/min; Globulin 3.9 g/dL (2.2-4.2); Glucose 96 mg/dL (74-106); Lipase 110 U/L (73-393); Potassium 3.5 mmol/L (3.5-5.1); Protein, Total 7.8 g/dL (6.4-8.2); Sodium Level 138 mmol/L (136-145); Thyroid Stim Hormone (TSH) 3.13 uIU/mL (0.358-3.74)
[2018-10-27 20:45] LABS: Bacteria 0 SEEN /hpf (None Seen); Color, Urine Straw (Yellow); Glucose, Dipstick Normal (Normal); Ketone-Dipstick Negative (Negative); Leukocyte Esterase-Dipstick Negative /ul (Negative); Mucous, Urine 0 SEEN /hpf (<or=2+); Nitrite-Dipstick Negative (Negative); Occult Blood-Urine Negative /ul (Negative); Protein-Dipstick Negative (Negative); Red Blood Cells-Urine 0 SEEN /hpf (0-5); Urine Bilirubin Dipstick Negative (Negative); Urine Clarity Clear (Clear); Urine Urobilinogen Normal (Normal); White Blood Cells 0 SEEN /hpf (0-5)
[2018-10-27 20:52] LABS: Squamous Epithelial Cells - UA 0-5 SEEN /hpf (5-10)
[2018-10-27 21:08] VITALS: BP 145/80; PULSE 79; RESP 17; O2SAT 97
== END 2018-10-27 21:08 | disposition home or self-care (01) ==
PROVIDERS: Emergency Provider Emergency Medicine; Family Provider Internal Medicine; PCP Internal Medicine
DX: R11.2 Nausea with vomiting, unspecified (principal)
CPT/HCPCS: 80048; 80076; 81001; 83690; 84443; 85025; 96361; 96374; 99283; J7030; A4216

== ENCOUNTER → 2019-04-05 15:46 | Outpatient (CLI) | payer MEDICAID, SELFPAY | PROVIDERS: PCP Internal Medicine; Referring Provider Otolaryngology Otolaryngology/Facial Plastic Surgery; Visit Provider Otolaryngology Otolaryngology/Facial Plastic Surgery | DX: J32.9 Chronic sinusitis, unspecified (principal) | CPT/HCPCS: 87070; 87205 ==

== ENCOUNTER 2019-04-15 08:43 | Emergency (ER) | payer MEDICAID, SELFPAY ==
[2019-04-15 08:44] VITALS: BP 135/80; PULSE 111; RESP 17; TEMP 36.1; O2SAT 99; BMI 28.1
--- NOTE | 2019-04-15 08:55 | ED.DCSUM_ITS ---
History of Present Illness Chief Complaint: Dental Informant: Patient Onset: Weeks Current Severity: Moderate Maximum Severity: Moderate Narrative: Patient presents with left lower dental pain for quite a long time. Over the past week she had increased pain anytime she tries to eat. She states that she is going to a dentist either Tuesday or Tuesday of this week. She is been taking ibuprofen. She states that she forgets to take ibuprofen before she eats she has significantly increased pain. - Past Medical History (1) Depression Status: Chronic (2) History of borderline personality disorder Status: Chronic Past Medical History - Allergies and Home Meds Allergies/Adverse Reactions: Allergies codeine Allergy (Verified 04/15/19 08:44) Itching hydrocodone bitartrate [From Vicodin] Allergy (Verified 04/15/19 08:44) Itching Primary Care Physician: Margaret Ortiz MD [Primary Care Provider] - Prior records reviewed: Yes Smoking Status: Never smoker Review of Systems General: Denies: Chills, Fever Eyes: Denies: Visual changes - bilaterally ENT: Reports: - - Left lower dental pain. Denies: Bilateral ear pain Cardiovascular: Denies: Chest pain, Palpitations Respiratory: Denies: Dyspnea Gastrointestinal: Denies: Abdominal pain, Nausea, Vomiting, Diarrhea Genitourinary: Denies: Dysuria Musculoskeletal: Denies: Extremity Pain Skin: Denies: Rash Neurological: Denies: Headache Physical Exam Vital Signs/Narrative: Vital Signs Temp Pulse Resp BP Pulse Ox 04/15/19 08:44 96.9 F L 111 H 17 135/80 H 99 Inital Vital Signs reviewed: Yes General: Well nourished, Well developed Head: Normocephalic Eyes: Perrl, EOMI ENT: Moist mucous membranes, - - Left mandibular second premolar tender to palpation with filling in place. Minimal surrounding gum edema. No sign of Bjorn angina. She does have lymphadenopathy. Posterior pharynx examination is unremarkable. Cardiovascular: Regular rate, Regular rhythm Respiratory: No distress Abdomen: Soft Extremities: Nontender Skin: Normal color, No rash Neurological: Alert, Oriented x3 Psychological: Normal affect Diagnostic/Tx/Re-eval - Medical Decision Making Patient be treated with Pen-Vee K and given a prescription for ibuprofen 800 mg which she can take 3 times a day. She will follow-up with her dentist later this week as scheduled. ED Disposition - Plan for ED Patient: Disposition: Home or Assisted Living Diagnosis: Odontalgia Instructions: Dental Pain Prescriptions: Ibuprofen [Motrin] 800 mg PO TID PRN PRN #20 tab PRN Reason: Pain Score 4-10/10 Transmission Status: Pending to [facility] Penicillin V Potassium 500 mg PO 4X/DAY #40 tab Transmission Status: Pending to [facility] Referrals: Margaret Ortiz MD [Primary Care Provider] - Additional Instructions: Follow-up with your dentist this week as scheduled.
[2019-04-15] MEDS: Ibuprofen 400 MG Tablet 800 MG PO (09:04)
[2019-04-15] MEDS: Penicillin Vk 250 MG Tablet 500 MG PO (09:04)
[2019-04-15 09:06] VITALS: BP 135/80; RESP 18; O2SAT 99
== END 2019-04-15 09:07 | disposition home or self-care (01) ==
LOC: ED 09:02
PROVIDERS: Emergency Provider Emergency Medicine; PCP Internal Medicine; Referring Provider Internal Medicine
DX: K08.89 Other specified disorders of teeth and supporting structures (principal)
CPT/HCPCS: 99283

== ENCOUNTER 2019-11-06 18:12 | Emergency (ER) | payer MEDICAID, SELFPAY ==
[2019-11-06 18:13] VITALS: BP 136/91; PULSE 108; RESP 16; TEMP 36.7; O2SAT 100; BMI 29.1
--- NOTE | 2019-11-06 19:19 | EKG12_ITS ---
Test Reason : CP Blood Pressure : / mmHG Vent. Rate : 093 BPM Atrial Rate : 093 BPM P-R Int : 134 ms QRS Dur : 084 ms QT Int : 356 ms P-R-T Axes : 060 056 256 degrees QTc Int : 442 ms Normal sinus rhythm Nonspecific ST and T wave abnormality Abnormal ECG Confirmed by VICTORIA CERVANTES ([id number]), editor managing director RAMIREZ VALENCIA ([id number]) on 11/08/2019 8:56:25 AM Referred By: FERCHO Confirmed By:VICTORIA CERVANTES
--- NOTE | 2019-11-06 19:21 | ED.VIS.GEN ---
History of Present Illness Chief Complaint: Chest Pain Narrative: Patient presents with 1 month history of indigestions, she feels pain in her chest when she swallows, she has some epigastric pain but no nausea. This is all worse with eating. She has no symptoms when she is not eating other than some slight epigastric pain. She has no back pain or tearing sensation she has no pleuritic component. She has no fever or chills. She does take cholesterol medications but has no other medical problems. Past Medical History - Allergies and Home Meds Allergies/Adverse Reactions: Allergies codeine Allergy (Verified 04/15/19 08:44) Itching hydrocodone bitartrate [From Vicodin] Allergy (Verified 04/15/19 08:44) Itching Primary Care Physician: Margaret Ortiz MD [Primary Care Provider] - Past Medical History: - - Hypercholesterolemia, anxiety and depression Smoking Status: Never smoker Review of Systems General: Denies: Fever ENT: Denies: Sore throat Cardiovascular: Reports: - - Chest discomfort when she eats. Respiratory: Denies: Dyspnea, Cough Gastrointestinal: Reports: - - Epigastric pain but no nausea or vomiting no right upper quadrant pain. Denies: Vomiting, Diarrhea Genitourinary: Denies: Dysuria Skin: Denies: Rash Neurological: Denies: Headache, Weakness Psych: Denies: Depression Hematologic: Denies: Easy bruising Allergy: Denies: Uticaria Physical Exam Vital Signs/Narrative: Vital Signs Temp Pulse Resp BP Pulse Ox 11/06/19 18:13 98.1 F 108 H 16 136/91 H 100 General: Well nourished, Well developed Head: Normocephalic Eyes: Negative for: Pale conjunctiva ENT: Moist mucous membranes, No rhinorrhea, - - No signs of candidiasis Cardiovascular: Regular rate, Regular rhythm Respiratory: No distress, CTA bilaterally, Chest nontender Abdomen: Soft, Nontender Back: Nontender, Normal Inspection Extremities: Nontender, No edema Skin: Normal color Neurological: Alert, Normal Strength, Normal Sensation Psychological: Normal affect Diagnostic/Tx/Re-eval - Medical Decision Making Heart score is 2. Patient improved with GI medications I will treat her with antacids for home and I will discharge her in stable condition. ED Disposition - Plan for ED Patient: Disposition: Home or Assisted Living Diagnosis: Gastritis Instructions: ED Gastritis, ED PEPTIC ULCER vs GASTRITIS Prescriptions: Sucralfate [Carafate] 1 gm PO 4X/DAY #20 tab Transmission Status: Pending to [facility] #30 Omeprazole 20 mg PO DAILY #30 tab. Transmission Status: Pending to [facility] #30 Referrals: Margaret Ortiz MD [Primary Care Provider] - 3-5 Days
[2019-11-06 19:38] VITALS: PULSE 93; RESP 17; O2SAT 100
[2019-11-06] MEDS: Mag Hydrox/Al Hydrox/Simeth 30 ML UDC PO (19:38)
--- NOTE | 2019-11-06 19:47 | RAD_ITS ---
STUDY: X-RAY CHEST REASON FOR EXAM: Female, 44 years old. CHEST PAIN AND HEARTBURN. HX OF ACID REFLUX AND TRYING OLD MEDICATION TECHNIQUE: Single AP portable view of the chest. COMPARISON: None. FINDINGS: The lungs are clear and expanded. There is no demonstrated pleural abnormality. Normal size heart. Normal mediastinum and em. Normal visualized pulmonary arteries. Normal visualized aortic arch and descending thoracic aorta. Normal visualized thoracic spine. Normal visualized ribs, clavicles, and shoulders. There is no demonstrated abnormality of the visualized soft tissue structures of the upper abdomen. RAD/Chest 1 View (Portable) IMPRESSION: Normal x-ray examination of the chest. Electronically Signed: David Post MD at 20:02 EDT , Service support ,
[2019-11-06 19:58] LABS: Absolute Lymphocyte Count 2.64 X10^3/uL (0.83-4.51); Basophil# 0.04 X10^3/uL; Basophil% 0.5 % (0-1); Eosinophils% 1.2 % (0-5); Hematocrit 41.9 % (37-47); Lymphocyte # 2.64 X10^3/ul (4.0); Lymphocyte % 32.3 % (19-41); Mean Corp Hgb Conc 33.4 g/dL (32-36); Mean Corpuscular Hgb 31.3 pg (27.0-32.0); Mean Corpuscular Volume 93.7 fL (81-99); Mean Platelet Vol. 10.2 fl (6.2-12.0); Monocyte# 0.41 X10^3/uL; NRBC Flagged by Analyzer 0 % (0-5); Neutrophil # 4.96 X10^3/uL (2.7-7.7); Neutrophil % 60.8 % (47-70); Platelet Count 283 K/mm3 (150-450); RBC Distribution Width CV 12.1 % (11.6-14.6); RBC Distribution Width SD 42.1 fl (35.1-43.9); Red Blood Count 4.47 M/mm3 (4.2-5.4); White Blood Count 8.2 K/mm3 (4.4-11.0)
[2019-11-06] MEDS: Famotidine 200 MG/20 ML MDV 20 MG in 0.9% Normal Saline (Pres. free 8 ML 300 MG IV (20:02)
[2019-11-06 20:20] LABS: Anion Gap 8 (5-15); BUN 15 mg/dL (7-18); BUN/Creat Ratio 15.6 RATIO (10-20); Calcium,Total 8.7 mg/dL (8.5-10.1); Chloride 110 mmol/L (98-107); Creatinine, Serum 0.96 mg/dL (0.55-1.02); EST Glomerular Filtration Rate 66 mL/min (>60); Est Glom Filt Rate - Afr Amer 80 mL/min (>60); Estimated Creatinine Clearance 65.89 ml/min; Glucose 111 mg/dL (74-106); Potassium 3.5 mmol/L (3.5-5.1); Sodium Level 140 mmol/L (136-145)
[2019-11-06 21:07] VITALS: BP 107/71; PULSE 92; RESP 18; O2SAT 100
== END 2019-11-06 21:10 | disposition home or self-care (01) ==
PROVIDERS: Emergency Provider Emergency Medicine; PCP Internal Medicine
DX: K29.70 Gastritis, unspecified, without bleeding (principal); F32.9 Major depressive disorder, single episode, unspecified; F41.9 Anxiety disorder, unspecified; E78.00 Pure hypercholesterolemia, unspecified; Z79.899 Other long term (current) drug therapy
CPT/HCPCS: 71045; 80048; 84484; 85025; 93005; 99285; A4216; J3490

== ENCOUNTER 2019-11-23 20:17 | Emergency (ER) | payer MEDICAID, SELFPAY ==
[2019-11-23 20:19] VITALS: BP 117/89; PULSE 84; RESP 16; TEMP 36.2; O2SAT 100; BMI 28.3
--- NOTE | 2019-11-23 20:40 | ED.VIS.GEN ---
History of Present Illness Chief Complaint: Other, Pain/Inj Informant: Patient Onset: Weeks - Onset of symptoms 1.5 weeks Context: Sudden Onset Timing: - - Unable to determine. Patient did not know what continuous intermittent meant. Even after she was told what those words meant she still could not tell me if the pain was intermittent or constant. Furthermore she was not able to tell me if the pain was waxing waning. She again asked for me to define it. Quality: Pain Location: Midsternum to above the umbilicus midline and right scapula Current Severity: Mild Maximum Severity: Severe Worsened by: Anything she eats or drinks and movement Relieved by: Nothing Associated Symptoms: . Hurts to breathe Narrative: Patient is a 44-year-old woman who presents with pain that is midline from the midsternum to above the umbilicus that started 1.5 weeks ago. The pain is now radiating through to her back. She states when she takes a warm bath or applies heat or turns the heat on her car the pain feels better. She is taken intermittently NSAIDs. She denies black or maroon stool. Denies history of peptic ulcer disease or hiatal hernia. She denies history of biliary disease. She denies history of coronary disease. She denies history of PE or DVT. She denies leg pain, swelling discoloration. She does report rhinorrhea and postnasal drainage with sore throat which she attributes to allergies. She has not noted a rash. Prior similar symptoms: No Recent Illness/Hospitalization: No - Past Medical History (1) Adopted Status: Acute (2) Depression Status: Chronic Past Medical History - Allergies and Home Meds Allergies/Adverse Reactions: Allergies codeine Allergy (Verified 11/23/19 20:21) Itching hydrocodone bitartrate [From Vicodin] Allergy (Verified 11/23/19 20:21) Itching Primary Care Physician: Margaret Ortiz MD [Primary Care Provider] - Prior records reviewed: Yes Surgical History: no surgical history Lives: Alone Smoking Status: Former smoker Alcohol: Rare Drugs: None Review of Systems General: Denies: Chills, Fever, Malaise, Sweats Eyes: Denies: Visual changes - bilaterally, Blurred Vision - bilaterally ENT: Reports: Rhinorrhea, Sore throat Cardiovascular: Reports: Chest pain Respiratory: Reports: Dyspnea. Denies: Cough, Sputum, Dyspnea on exertion, Orthopnea, Paroxysmal nocturnal dyspnea, -, - Gastrointestinal: Denies: Abdominal pain, Nausea, Vomiting, Diarrhea, Melena, Hematochezia Genitourinary: Denies: Dysuria, Hematuria, Frequency Musculoskeletal: Reports: Back pain. Denies: Myalgias, Arthralgias, Neck pain, Swelling, Extremity Pain, -, - Skin: Denies: Rash, Wounds Neurological: Denies: Headache, Weakness, Parasthesia, Numbness, -, - Hematologic: Denies: Easy bruising, Easy bleeding Physical Exam Vital Signs/Narrative: Vital Signs Temp Pulse Resp BP Pulse Ox 11/23/19 20:19 97.1 F L 84 16 117/89 H 100 Inital Vital Signs reviewed: Yes General: No Acute Distress - Patient was on her cell phone when I entered.. Negative for: Well nourished, Well developed - Because of her penicillin allergy. Eyes: Perrl, EOMI. Negative for: Pale conjunctiva, Scleral icterus Neck: Supple, Nontender Cardiovascular: Regular rate, Regular rhythm, No murmurs, Normal S1, Normal S2 Respiratory: No distress, CTA bilaterally, Chest nontender Abdomen: Soft, Nontender, Nondistended, Normal bowel sounds, No masses - Wound edges.. Negative for: Hypoactive bowel sounds, Hepatomegaly, Splenomegaly, Mass Back: Normal Inspection, - - Tenderness over the right scapular region. Negative for: CVA tenderness, Spinal tenderness Extremities: Nontender, No edema, - - There is no asymmetry, swelling, discoloration, leg vein distention, palpable cords or tenderness along the distribution of the deep venous system. Skin: Normal color, No rash Neurological: Alert, Oriented x3, Cranial nerves II-XII grossly intact, Normal Strength, Normal Sensation Psychological: - - Blunted versus restrictive Diagnostic/Tx/Re-eval Laboratory Results 11/23/19 11/23/19 11/23/19 20:50 20:50 20:50 WBC 7.7 RBC 4.06 L Hgb 12.7 Hct 37.0 MCV 91.1 MCH 31.3 MCHC 34.3 RDW Std Deviation 40.7 RDW Coeff of Gregory 12.3 Plt Count 295 MPV 10.2 Immature Gran % (Auto) 0.100 Neut % (Auto) 51.8 Lymph % (Auto) 39.4 [place] % (Auto) 6.9 Eos % (Auto) 0.9 Baso % (Auto) 0.9 Absolute Neuts (auto) 4.0 Absolute Lymphs (auto) 3.03 Nucleated RBC % 0 Sodium 141 Potassium 3.2 L Chloride 112 H Carbon Dioxide 22.0 Anion Gap 7 BUN 13 Creatinine 1.00 Estim Creat Clear Calc 63.25 Est GFR (MDRD) Af Amer 77 Est GFR (MDRD) Non-Af 64 BUN/Creatinine Ratio 13.1 Glucose 102 Calcium 8.8 Total Bilirubin 0.40 AST 22 ALT 25 Alkaline Phosphatase 72 Total Protein 7.5 Albumin 3.9 Globulin 3.6 Albumin/Globulin Ratio 1.1 Lipase 80 Urine Color Yellow Urine Clarity Sl. Cloudy Urine pH 5.0 Ur Specific [place] 1.025 Urine Protein 30 H Urine Glucose (UA) Normal Urine Ketones 5 H Urine Occult Blood 10 H Urine Nitrite Negative Urine Bilirubin Negative Urine Urobilinogen Normal Ur Leukocyte Esterase 25 H Urine RBC 0-5 SEEN Urine WBC 0-5 SEEN Ur Squamous Epith Cells 10-25 SEEN Urine Bacteria 0 SEEN Urine Mucus 0 SEEN Work-up is unremarkable. Since pain is reproducible we will treat for muscular pain. Patient states the anterior pain has been present for a while. She has been on multiple meds with no relief. She was informed the cause of her anterior chest/upper abdominal pain is unknown. - Medical Decision Making Patient is PERC negative. This may represent muscular pain with regards to her back. The pain anterior is not reproducible. This may represent cardiac versus noncardiac versus GI versus biliary. Work-up was undertaken. ED Disposition - Plan for ED Patient: Disposition: Home or Assisted Living Diagnosis: Upper back pain on right side, Upper abdominal pain of unknown etiology Instructions: ED Back Pain Acute or Chronic, ED Abdominal Pain Unkn Cause Fem Referrals: Margaret Ortiz MD [Primary Care Provider] - As Needed
[2019-11-23] MEDS: Ketorolac 15 MG/ML Vial IV (20:48)
[2019-11-23 20:56] LABS: Bacteria 0 SEEN /hpf (None Seen); Mucous, Urine 0 SEEN /hpf (<or=2+)
[2019-11-23 21:01] LABS: Color, Urine Yellow (Yellow); Glucose, Dipstick Normal (Normal); Ketone-Dipstick 5 mg/dl (Negative); Leukocyte Esterase-Dipstick 25 /ul (Negative); Nitrite-Dipstick Negative (Negative); Occult Blood-Urine 10 /ul (Negative); Protein-Dipstick 30 mg/dl (Negative); Specific Gravity, Urine 1.025 (1.002-1.030); Urine Bilirubin Dipstick Negative (Negative); Urine Clarity Sl. Cloudy (Clear); Urine Urobilinogen Normal (Normal)
[2019-11-23 21:15] LABS: ALB/GLOB Ratio 1.1 RATIO (0.9-2.4); AST(SGOT) 22 U/L (15-37); Alanine Aminotransfer ALT/SGPT 25 U/L (13-56); Albumin, Serum 3.9 g/dL (3.2-5.0); Alkaline Phosphatase 72 U/L (45-117); Anion Gap 7 (5-15); BUN 13 mg/dL (7-18); BUN/Creat Ratio 13.1 RATIO (10-20); Calcium,Total 8.8 mg/dL (8.5-10.1); Chloride 112 mmol/L (98-107); EST Glomerular Filtration Rate 64 mL/min (>60); Est Glom Filt Rate - Afr Amer 77 mL/min (>60); Estimated Creatinine Clearance 63.25 ml/min; Globulin 3.6 g/dL (2.2-4.2); Glucose 102 mg/dL (74-106); Lipase 80 U/L (73-393); Potassium 3.2 mmol/L (3.5-5.1); Protein, Total 7.5 g/dL (6.4-8.2); Sodium Level 141 mmol/L (136-145)
[2019-11-23 21:16] LABS: Absolute Lymphocyte Count 3.03 X10^3/uL (0.83-4.51); Basophil# 0.07 X10^3/uL; Basophil% 0.9 % (0-1); Eosinophil# 0.07 X10^3/uL; Eosinophils% 0.9 % (0-5); Hemoglobin 12.7 g/dL (12.0-15.0); Lymphocyte # 3.03 X10^3/ul (4.0); Lymphocyte % 39.4 % (19-41); Mean Corp Hgb Conc 34.3 g/dL (32-36); Mean Corpuscular Hgb 31.3 pg (27.0-32.0); Mean Corpuscular Volume 91.1 fL (81-99); Mean Platelet Vol. 10.2 fl (6.2-12.0); Monocyte# 0.53 X10^3/uL; Monocyte% 6.9 % (0-10); NRBC Flagged by Analyzer 0 % (0-5); Neutrophil # 3.98 X10^3/uL (2.7-7.7); Neutrophil % 51.8 % (47-70); Platelet Count 295 K/mm3 (150-450); RBC Distribution Width CV 12.3 % (11.6-14.6); RBC Distribution Width SD 40.7 fl (35.1-43.9); Red Blood Count 4.06 M/mm3 (4.2-5.4); White Blood Count 7.7 K/mm3 (4.4-11.0)
[2019-11-23 21:23] LABS: Red Blood Cells-Urine 0-5 SEEN /hpf (0-5); Squamous Epithelial Cells - UA 10-25 SEEN /hpf (5-10); White Blood Cells 0-5 SEEN /hpf (0-5)
[2019-11-23 22:20] VITALS: RESP 16
== END 2019-11-23 22:43 | disposition home or self-care (01) ==
PROVIDERS: Emergency Provider Emergency Medicine; PCP Internal Medicine
DX: M54.6 Pain in thoracic spine (principal); R10.10 Upper abdominal pain, unspecified; Z87.891 Personal history of nicotine dependence
CPT/HCPCS: 80053; 81001; 83690; 85025; 96374; 99283; A4216

== ENCOUNTER 2019-12-26 19:23 | Emergency (ER) | payer MEDICAID, SELFPAY ==
[2019-12-26 19:25] VITALS: BP 152/81; PULSE 114; RESP 19; TEMP 36.7; O2SAT 100; BMI 28.7
--- NOTE | 2019-12-26 19:37 | ED.DCSUM_ITS ---
History of Present Illness Chief Complaint: Cough Informant: Patient Onset: Days Context: Onset with activity, Gradual Onset Timing: Continuous Current Severity: Mild Maximum Severity: Mild Narrative: The patient is a 44-year-old female with medical history significant for asthma the presents to the emergency department cough. Patient states that usually when the seasons change, her asthma flare. She states she was using her inhaler with spacer, but does not think that she has been using it correctly. She denies being short of breath. She denies any fevers. She denies any productive sputum. She states that she will go into coughing fits. She denies any recent illness or sick contacts. She has no concern for covert exposure. Prior similar symptoms: No Recent Illness/Hospitalization: No Past Medical History - Allergies and Home Meds Allergies/Adverse Reactions: Allergies acetaminophen [From Tylenol-Codeine #3] Allergy (Verified 12/26/19 19:24) Itching codeine [From Tylenol-Codeine #3] Allergy (Verified 12/26/19 19:24) Itching hydrocodone bitartrate [From Vicodin] Allergy (Verified 12/26/19 19:24) Itching Primary Care Physician: Margaret Ortiz MD [Primary Care Provider] - Prior records reviewed: Yes Past Medical History: - - Asthma Surgical History: no surgical history Smoking Status: Former smoker Review of Systems General: Denies: Chills, Fever, Sweats Eyes: Denies: Visual changes - bilaterally, Diplopia ENT: Denies: Rhinorrhea, Sore throat Cardiovascular: Denies: Chest pain, Palpitations Respiratory: Reports: Cough. Denies: Dyspnea, Dyspnea on exertion Gastrointestinal: Denies: Abdominal pain, Nausea, Vomiting, Diarrhea, Melena, Hematochezia Genitourinary: Denies: Dysuria, Hematuria, Frequency Musculoskeletal: Denies: Back pain, Extremity Pain Skin: Denies: Rash, Wounds Neurological: Denies: Headache, Weakness, Numbness Physical Exam Vital Signs/Narrative: Vital Signs Temp Pulse Resp BP Pulse Ox 12/26/19 19:25 98.1 F 114 H 19 H 152/81 H 100 Inital Vital Signs reviewed: Yes General: Well nourished, Well developed, No Acute Distress Head: Normocephalic, Atraumatic Eyes: Perrl, EOMI ENT: Moist mucous membranes, No rhinorrhea Neck: Supple, Nontender Cardiovascular: Regular rate, Regular rhythm, No murmurs Respiratory: No distress, Chest nontender, Diminished Abdomen: Soft, Nontender, Nondistended, Normal bowel sounds Back: Nontender, Normal Inspection Extremities: Nontender, No edema Skin: Normal color, No rash Neurological: Alert, Oriented x3, Cranial nerves II-XII grossly intact, Normal Strength, Normal Sensation Psychological: Normal affect, Normal Mood Diagnostic/Tx/Re-eval Chest X-Ray - ED: 2 View, Normal, Heart, Lungs, Mediastinum Chest x-ray - Medical Decision Making Patient presents with mild cough. She is not hypoxic. She has no pleuritic chest pain. She does have a scant wheeze. Chest x-ray was obtained. There is no evidence of focal infiltrative process. I do not feel this patient requires COVID testing. I do feel this is more likely an exacerbation of her asthma. The patient is given prednisone. I did want to continue her on a burst, but she states that it is given her significant blood pressure difficulty in the past. Because of this, she is given a one-time dose of Decadron. She was counseled on inhaler and spacer teaching with respiratory therapy. She will be discharged h ome. Impression 1. Asthma exacerbation ED Disposition - Plan for ED Patient: Instructions: ED Bronchitis Asthmatic Referrals: Margaret Ortiz MD [Primary Care Provider] -
[2019-12-26] MEDS: predniSONE 20 MG Tablet 60 MG PO (19:46)
--- NOTE | 2019-12-26 19:58 | RAD_ITS ---
STUDY: X-RAY CHEST REASON FOR EXAM: Female, 44 years old. WORSENING COUGH LAST SEVERAL DAYS TECHNIQUE: 2 views COMPARISON: Prior chest radiograph of 11/06/2019 FINDINGS: There is a tiny metal object embedded in the anterior left chest just beneath the skin also present on prior exam. This tiny object is projecting over the space between the left anterior third and fourth ribs and is approximately 8 cm left of midline. The lungs are clear and expanded. There is no demonstrated pleural abnormality. Normal size heart. Normal mediastinum and em. Normal visualized pulmonary arteries. Normal visualized aortic arch and descending thoracic aorta. Normal visualized thoracic spine. Normal visualized ribs, clavicles, and shoulders. There is no demonstrated abnormality of the visualized soft tissue structures of the upper abdomen. RAD/Chest PA and Lateral IMPRESSION: No acute cardiopulmonary findings or changes. Negative for consolidation, atelectasis, pleural effusion or cardiomegaly. Tiny metal foreign body embedded in the anterior left chest just below the skin stable from prior exam as located above. Electronically Signed: Cristina Landrum MD at 20:21 EDT , Service support ,
[2019-12-26] MEDS: dexAMETHasone 10 MG/ML Vial PO.IVFORM (20:30)
[2019-12-26 20:33] VITALS: BP 127/84; RESP 19
== END 2019-12-26 20:37 | disposition home or self-care (01) ==
LOC: ED 19:38
PROVIDERS: Emergency Provider Emergency Medicine; PCP Internal Medicine
DX: J45.901 Unspecified asthma with (acute) exacerbation (principal); Z87.891 Personal history of nicotine dependence
CPT/HCPCS: 71046; 99281; 99284

== ENCOUNTER → 2020-01-02 | Outpatient (CLI) | payer MEDICAID, SELFPAY ==
[2019-12-26 19:25] VITALS: BMI 28.7
== END | disposition home or self-care (01) ==
LOC: LABSPEC 15:40
PROVIDERS: PCP Internal Medicine; Visit Provider Otolaryngology Otolaryngology/Facial Plastic Surgery
DX: J32.9 Chronic sinusitis, unspecified (principal)
CPT/HCPCS: 87070; 87205

== ENCOUNTER 2020-03-29 10:10 | Emergency (ER) | payer MEDICAID, SELFPAY ==
[2020-03-29 10:10] VITALS: BP 111/66; PULSE 116; RESP 18; TEMP 35.9; O2SAT 100; BMI 26.5
--- NOTE | 2020-03-29 10:25 | ED.VIS.GEN ---
History of Present Illness Chief Complaint: Abd Pain Informant: Patient Onset: Days - 8 days Context: Gradual Onset Current Severity: Mild Maximum Severity: Moderate Narrative: Patient presents secondary to abdominal pain with nausea, vomiting, diarrhea. She reports 8 days ago she thought she had a stomach flu. After 48 hours she started to feel better. The following day she ate 1 brusher tender and had a beer and immediately went to the restroom and vomited. The rest of the week she has had diarrhea. She has not measured a fever but has felt warm and cold. She describes a generalized abdominal pain with aching. - Past Medical History (1) High cholesterol Status: Chronic (2) Depression Status: Chronic (3) History of borderline personality disorder Status: Chronic Past Medical History - Allergies and Home Meds Allergies/Adverse Reactions: Allergies acetaminophen [From Tylenol-Codeine #3] Allergy (Verified 03/29/20 10:13) Itching codeine [From Tylenol-Codeine #3] Allergy (Verified 03/29/20 10:13) Itching hydrocodone bitartrate [From Vicodin] Allergy (Verified 03/29/20 10:13) Itching Primary Care Physician: Margaret Ortiz MD [Primary Care Provider] - Prior records reviewed: Yes Surgical History: no surgical history, appendectomy, - - Abdominal surgery after trauma Smoking Status: Never smoker Review of Systems General: Reports: Chills Eyes: Denies: Visual changes - bilaterally ENT: Denies: Bilateral ear pain Cardiovascular: Denies: Chest pain Respiratory: Denies: Dyspnea, Cough Gastrointestinal: Reports: Abdominal pain, Nausea, Vomiting, Diarrhea Genitourinary: Denies: Dysuria Musculoskeletal: Denies: Swelling, Extremity Pain Skin: Denies: Rash Neurological: Denies: Headache Hematologic: Denies: Easy bruising, Easy bleeding Allergy: Denies: Uticaria Physical Exam Vital Signs/Narrative: Vital Signs Temp Pulse Resp BP Pulse Ox 03/29/20 10:10 96.6 F L 116 H 18 111/66 100 Inital Vital Signs reviewed: Yes General: Well nourished, Well developed Head: Normocephalic ENT: Moist mucous membranes Neck: Supple Cardiovascular: Regular rate, Regular rhythm Respiratory: No distress, CTA bilaterally Abdomen: Soft, Tender - Mild diffuse tenderness palpation. No guarding or rebound., Hypoactive bowel sounds Extremities: Nontender Skin: Normal color Neurological: Alert, Oriented x3 Psychological: Normal affect Diagnostic/Tx/Re-eval Impressions Acute Abdomen Series 03/29/20 10:43 IMPRESSION: Normal x-ray examination of the chest, abdomen, and pelvis. Electronically Signed: Tati Gustafson MD at 11:15 EST Tel , Service support , 03/29/20 10:43 Acute Abdomen Inc Chest [RAD] Stat Laboratory Results 03/29/20 03/29/20 10:20 10:20 WBC 5.6 RBC 4.90 Hgb 14.9 Hct 44.5 MCV 90.8 MCH 30.4 MCHC 33.5 RDW Std Deviation 40.8 RDW Coeff of Gregory 12.2 Plt Count 323 MPV 10.1 Immature Gran % (Auto) 0.000 Neut % (Auto) 49.3 Lymph % (Auto) 43.3 H [place] % (Auto) 5.6 Eos % (Auto) 0.9 Baso % (Auto) 0.9 Absolute Neuts (auto) 2.7 Absolute Lymphs (auto) 2.41 Nucleated RBC % 0 Sodium 141 Potassium 3.4 L Chloride 111 H Carbon Dioxide 23.0 Anion Gap 7 BUN 14 Creatinine 1.12 H Estim Creat Clear Calc 56.48 Est GFR (MDRD) Af Amer 67 Est GFR (MDRD) Non-Af 56 L BUN/Creatinine Ratio 12.5 Glucose 112 H Calcium 9.0 Total Bilirubin 0.60 Direct Bilirubin 0.11 AST 13 L ALT 20 Alkaline Phosphatase 78 Total Protein 8.6 H Albumin 4.4 Globulin 4.2 Lipase 98 - Medical Decision Making Patient was given a liter IV fluids along with Zofran and 1 tab of oxycodone. Acute abdominal series per my interpretation reveals no bowel obstruction or dilated bowel loops. Radiologist interpretation is reviewed. Blood work is unremarkable. Patient symptoms are consistent with viral gastroenteritis. She has Zofran at home that she can use and she will be given prescription for Bentyl as well. She is given return instructions. ED Disposition - Plan for ED Patient: Disposition: Home or Assisted Living Diagnosis: Viral gastroenteritis Instructions: ED Gastroenteritis, Viral (Adult) Prescriptions: Dicyclomine HCl [Bentyl] 20 mg PO TIDAC #20 cap Transmission Status: Pending to [facility] #30 Referrals: Margaret Ortiz MD [Primary Care Provider] - 1 Week if not improving
[2020-03-29] MEDS: 0.9% Normal Saline 1,000 ML 1000 ML IV (10:32)
[2020-03-29] MEDS: oxyCODONE 5 MG Tablet PO (10:32)
[2020-03-29] MEDS: Ondansetron 4 MG/2 ML Vial IV (10:32)
[2020-03-29 10:42] LABS: Absolute Lymphocyte Count 2.41 X10^3/uL (0.83-4.51); Absolute Neutrophil Count 2.7 X10^3/uL (2.0-7.7); Basophil# 0.05 X10^3/uL; Basophil% 0.9 % (0-1); Eosinophil# 0.05 X10^3/uL; Eosinophils% 0.9 % (0-5); Hematocrit 44.5 % (37-47); Hemoglobin 14.9 g/dL (12.0-15.0); Lymphocyte # 2.41 X10^3/ul (4.0); Lymphocyte % 43.3 % (19-41); Mean Corp Hgb Conc 33.5 g/dL (32-36); Mean Corpuscular Hgb 30.4 pg (27.0-32.0); Mean Corpuscular Volume 90.8 fL (81-99); Mean Platelet Vol. 10.1 fl (6.2-12.0); Monocyte# 0.31 X10^3/uL; Monocyte% 5.6 % (0-10); NRBC Flagged by Analyzer 0 % (0-5); Neutrophil # 2.74 X10^3/uL (2.7-7.7); Neutrophil % 49.3 % (47-70); Platelet Count 323 K/mm3 (150-450); RBC Distribution Width CV 12.2 % (11.6-14.6); RBC Distribution Width SD 40.8 fl (35.1-43.9); White Blood Count 5.6 K/mm3 (4.4-11.0)
--- NOTE | 2020-03-29 10:43 | RAD_ITS ---
STUDY: X-RAY - ACUTE ABDOMINAL SERIES REASON FOR EXAM: Female, 44 years old. ABD PAIN X 1 WK., MORE ON THE RIGHT SIDE. PT UNABLE TO REMOVE PIERCING IN CHEST AREA TECHNIQUE: Single view of the chest. Supine, and erect view(s) of the abdomen were obtained. COMPARISON: December 26, 2019 chest x-ray FINDINGS: There is a persistent small radiopaque density overlying the left chest soft tissues. The lungs are clear and expanded. Normal size heart. Normal mediastinum and em. Normal visualized pulmonary arteries. Normal visualized aortic arch and descending thoracic aorta. There is a non-specific bowel gas pattern. There are multiple calcified phleboliths. Normal visualized osseous structures. RAD/Acute Abdomen Inc Chest IMPRESSION: Normal x-ray examination of the chest, abdomen, and pelvis. Electronically Signed: Tati Gustafson MD at 11:15 EST Tel , Service support ,
[2020-03-29 10:53] LABS: AST(SGOT) 13 U/L (15-37); Alanine Aminotransfer ALT/SGPT 20 U/L (13-56); Albumin, Serum 4.4 g/dL (3.2-5.0); Alkaline Phosphatase 78 U/L (45-117); Anion Gap 7 (5-15); BUN 14 mg/dL (7-18); BUN/Creat Ratio 12.5 RATIO (10-20); Bilirubin, Direct 0.11 mg/dL (0.00-0.30); Chloride 111 mmol/L (98-107); Creatinine, Serum 1.12 mg/dL (0.55-1.02); EST Glomerular Filtration Rate 56 mL/min (>60); Est Glom Filt Rate - Afr Amer 67 mL/min (>60); Estimated Creatinine Clearance 56.48 ml/min; Globulin 4.2 g/dL (2.2-4.2); Glucose 112 mg/dL (74-106); Lipase 98 U/L (73-393); Potassium 3.4 mmol/L (3.5-5.1); Protein, Total 8.6 g/dL (6.4-8.2); Sodium Level 141 mmol/L (136-145)
== END 2020-03-29 11:47 | disposition home or self-care (01) ==
PROVIDERS: Emergency Provider Emergency Medicine; PCP Internal Medicine
DX: A08.4 Viral intestinal infection, unspecified (principal)
CPT/HCPCS: 74022; 80048; 80076; 83690; 85025; 96361; 96374; 99284; J7030; A4216; J2405

== ENCOUNTER 2020-10-10 06:28 | Emergency (ER) | payer MEDICAID, SELFPAY ==
[2020-10-10 06:30] VITALS: BP 121/60; PULSE 95; RESP 16; TEMP 35.5; O2SAT 100; BMI 25.1
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
[2020-10-10 07:12] LABS: Absolute Lymphocyte Count 1.84 X10^3/uL (0.83-4.51); Absolute Neutrophil Count 2.4 X10^3/uL (2.0-7.7); Basophil# 0.04 X10^3/uL; Basophil% 0.9 % (0-1); Eosinophil# 0.06 X10^3/uL; Eosinophils% 1.3 % (0-5); Hematocrit 38.8 % (37-47); Hemoglobin 12.6 g/dL (12.0-15.0); Lymphocyte # 1.84 X10^3/ul (0.83-4.51); Lymphocyte % 39.5 % (19-41); Mean Corp Hgb Conc 32.5 g/dL (32-36); Mean Corpuscular Hgb 30.5 pg (27.0-32.0); Mean Corpuscular Volume 93.9 fL (81-99); Mean Platelet Vol. 10.3 fl (6.2-12.0); Monocyte# 0.27 X10^3/uL; Monocyte% 5.8 % (0-10); NRBC Flagged by Analyzer 0 % (0-5); Neutrophil # 2.44 X10^3/uL (2.7-7.7); Neutrophil % 52.3 % (47-70); Platelet Count 303 K/mm3 (150-450); RBC Distribution Width CV 12.8 % (11.6-14.6); RBC Distribution Width SD 44.3 fl (35.1-43.9); Red Blood Count 4.13 M/mm3 (4.2-5.4); White Blood Count 4.7 K/mm3 (4.4-11.0)
[2020-10-10] MEDS: Ondansetron 4 MG/2 ML Vial IV (07:31)
[2020-10-10] MEDS: Ketorolac 30 MG/ML Syringe IV (07:31)
[2020-10-10 07:35] LABS: AST(SGOT) 12 U/L (15-37); Alanine Aminotransfer ALT/SGPT 24 U/L (13-56); Albumin, Serum 3.7 g/dL (3.2-5.0); Alkaline Phosphatase 65 U/L (45-117); Anion Gap 7 (5-15); BUN 16 mg/dL (7-18); Calcium,Total 8.2 mg/dL (8.5-10.1); Chloride 113 mmol/L (98-107); Creatinine, Serum 0.84 mg/dL (0.55-1.02); EST Glomerular Filtration Rate 77 mL/min (>60); Est Glom Filt Rate - Afr Amer 93 mL/min (>60); Globulin 3.8 g/dL (2.2-4.2); Glucose 121 mg/dL (74-106); Lipase 94 U/L (73-393); Potassium 2.8 mmol/L (3.5-5.1); Protein, Total 7.5 g/dL (6.4-8.2); Sodium Level 141 mmol/L (136-145)
[2020-10-10 07:47] LABS: Bacteria 0 SEEN /hpf (None Seen); Mucous, Urine 0 SEEN /hpf (<or=2+); Red Blood Cells-Urine 0 SEEN /hpf (0-5); White Blood Cells 0 SEEN /hpf (0-5)
[2020-10-10 07:51] LABS: Color, Urine Yellow (Yellow); Glucose, Dipstick Normal (Normal); Ketone-Dipstick Negative (Negative); Leukocyte Esterase-Dipstick 25 /ul (Negative); Nitrite-Dipstick Negative (Negative); Occult Blood-Urine Negative /ul (Negative); Protein-Dipstick Negative (Negative); Urine Bilirubin Dipstick Negative (Negative); Urine Clarity Clear (Clear); Urine Urobilinogen Normal (Normal)
[2020-10-10 08:02] LABS: Squamous Epithelial Cells - UA 0-5 SEEN /hpf (5-10)
--- NOTE | 2020-10-10 08:06 | CT_ITS ---
STUDY: CT ABDOMEN AND PELVIS WITHOUT CONTRAST REASON FOR EXAM: Female, 45 years old. Flank pain RADIATION DOSAGE (If Supplied By Facility): CTDIvol = ( 7.32 ) mGy, DLP = ( 386.16 ) mGycm TECHNIQUE: Transaxial images were obtained from the dome of the diaphragm to the symphysis pubis without oral contrast, and without intravenous contrast. Sagittal and coronal images were reconstructed. Individualized dose optimization techniques were used for this CT. COMPARISON: None. FINDINGS: The visualized lung bases are unremarkable. The visualized portions of the heart are within normal limits. Normal liver. Normal gallbladder and extrahepatic biliary system. Normal spleen. Normal pancreas. Normal bilateral adrenal glands. Normal right kidney. Normal left kidney. Hyperdensity within the stomach likely represents ingested medication Normal small intestine. Normal colon. There are surgical clips in the region of the appendix consistent with a prior appendectomy. Normal abdominal aorta. Normal inferior vena cava. Normal retroperitoneum. Bladder distends normally. There is a tiny bubble of air in the nondependent pelvis likely from recent catheterization Normal visualized uterus. No suspicious adnexal mass or free fluid Normal abdominal wall. Normal osseous structures. CT/Abdomen/Pelvis without Cont IMPRESSION: No suspicious solid organ and amount, specifically, no obstructive uropathy No free intraperitoneal fluid, air, or suspicious adenopathy Electronically Signed: Dillon Infante MD at 8:38 EDT , Service support ,
[2020-10-10 08:20] LABS: Internal QC Validated? YES +Cl - CLEAR BKGD; Pregnancy, Urine Negative Negative
[2020-10-10] MEDS: Potassium Chloride Oral Tablet 20 MEQ 40 MEQ PO (08:53)
[2020-10-10 08:59] VITALS: BP 104/75; PULSE 81; RESP 16; O2SAT 97
--- NOTE | 2020-10-10 09:00 | ED.RN ---
THIS NURSE REVIEWED D/C INSTRUCTIONS WITH PT. PT VERBALIZED UNDERSTANDING OF INSTRUCTIONS. IV D/C. IV CATHETER INTACT. PT TOLERATED WELL. PT DENIES FURTHER NEEDS OR QUESTIONS AT THIS TIME. PT AMBULATES FROM ROOM ON OWN WITHOUT ASSISTANCE FROM STAFF
== END 2020-10-10 09:01 | disposition home or self-care (01) ==
PROVIDERS: Emergency Provider Emergency Medicine; PCP Internal Medicine
DX: M54.5 Low back pain (principal); R10.30 Lower abdominal pain, unspecified; E87.6 Hypokalemia; F32.9 Major depressive disorder, single episode, unspecified; E78.00 Pure hypercholesterolemia, unspecified; Z79.899 Other long term (current) drug therapy
CPT/HCPCS: 74176; 80053; 81001; 81025; 83690; 85025; 96374; 96375; 99284; A4216; J2405

== ENCOUNTER → 2021-02-16 | Outpatient (CLI) | payer MEDICAID, SELFPAY | END | disposition home or self-care (01) | LOC: LABSPEC 15:44 | PROVIDERS: PCP Internal Medicine; Visit Provider Otolaryngology Otolaryngology/Facial Plastic Surgery | DX: J32.8 Other chronic sinusitis (principal) | CPT/HCPCS: 87070; 87205 ==

== ENCOUNTER → 2021-02-24 07:50 | Outpatient (CLI) | payer MEDICAID, SELFPAY ==
--- NOTE | 2021-02-24 07:53 | CT_ITS ---
STUDY: CT MAXILLOFACIAL SINUSES REASON FOR EXAM: Female, 45 years old. Sinus pain, headache RADIATION DOSAGE (If Supplied By Facility): CTDIvol = ( 33.06 ) mGy, DLP = ( 8251.45 ) mGycm TECHNIQUE: The patient was scanned in a multi detector CT scanner. High resolution axial imaging was performed without the administration of intravenous contrast material. Sagittal and coronal images were reconstructed. Individualized dose optimization techniques were used for this CT. COMPARISON: None. FINDINGS: FRONTAL SINUSES: Normal aeration, without mucosal inflammatory disease. ETHMOIDAL SINUSES: Normal aeration, without mucosal inflammatory disease. MAXILLARY SINUSES: Normal aeration, without mucosal inflammatory disease. SPHENOIDAL SINUSES: Normal aeration, without mucosal inflammatory disease. There is patency of the bilateral maxillary infundibuli with normal uncinate processes, ethmoid bullae, and hiatus semilunaris. Normal bilateral middle turbinates. Normal bilateral inferior turbinates. Normal midline nasal septum. There is patency of the bilateral nasal airways. The visualized osseous structures are normal. The visualized bilateral orbital contents are normal. CT/Sinus/Facial Bone IMPRESSION: Normal CT examination of the maxillofacial sinuses. Electronically Signed: Dillon Infante MD at 12:22 EST , Service support ,
== END ==
PROVIDERS: PCP Internal Medicine; Referring Provider Otolaryngology Otolaryngology/Facial Plastic Surgery; Visit Provider Otolaryngology Otolaryngology/Facial Plastic Surgery
DX: J32.8 Other chronic sinusitis (principal)
CPT/HCPCS: 70486

== ENCOUNTER 2021-04-14 15:26 | Outpatient (CLI) | payer MEDICAID, SELFPAY | END 2021-04-14 23:59 | disposition short-term general hospital (02) | LOC: LABSPEC 15:27 | PROVIDERS: PCP Internal Medicine; Visit Provider Otolaryngology | DX: Z20.822 Contact with and (suspected) exposure to COVID-19 (principal) | CPT/HCPCS: 87635; U0003; U0005 ==

== ENCOUNTER 2021-04-21 16:42 | Outpatient (CLI) | payer MEDICAID, SELFPAY ==
--- NOTE | 2021-04-21 10:00 | SEP_PTH ---
PATIENT: YOMAIRA LOCO LOC: [facility] U#:[id number] AGE/SX: 45/F ROOM: RE04/21/[address]: Dr. Abhishek Albrecht MD : 1975 BED: DIS: 04/21/2021 SPEC #: [id number] RECD: 04/21/21 15:06 STATUS: NELSON NARESH #: [id number] RICHARD: 04/21/21 10:[address]: Abhishek Albrecht DEPT: SURGICAL PATHOLOGY RECD BY: Shelbi Fry ENTERED: 04/22/21 08:39 SP TYPE: SEPTUM OTHR DR: Dr. Margaret Ortiz MD [facility] Tissues: Nasal septum, NOS Procedures: Decalcification bone/plaque Surgery Specimen Level III HEADER OPERATION: Septoplasty, bilateral submucous resection inferior turbinates PRE-OP DIAGNOSIS: Nasal airway obstruction, deviated nasal septum, inferior turbinate hypertrophy TISSUE SUBMITTED: Septum MICROSCOPIC DIAGNOSIS Septum: Fragments of cartilage and bone, clinically deviated nasal septum. MICHELLE:benny 04/27/2021 MICROSCOPIC DESCRIPTION Slides are reviewed. GROSS DESCRIPTION Received in fixative is one container labeled with the patient's name and designated septum. The specimen consists of multiple fragments of cartilage and bone that in aggregate measure 3 x 2.5 x 0.5 cm. The specimen is totally submitted in one cassette after decalcification. / MICHELLE:benny 04/22/2021 TC:5 CPT: 16277, 26824
== END 2021-04-21 23:59 | disposition home or self-care (01) ==
LOC: LABSPEC 16:47
PROVIDERS: PCP Internal Medicine; Referring Provider Otolaryngology; Visit Provider Otolaryngology
DX: J34.2 Deviated nasal septum (principal); J98.8 Other specified respiratory disorders; J34.3 Hypertrophy of nasal turbinates
CPT/HCPCS: 88304; 88311

== ENCOUNTER 2023-10-16 16:10 | Emergency (ER) | payer MEDICAID, SELFPAY ==
[2023-10-16 16:15] VITALS: BP 117/68; PULSE 124; RESP 22; TEMP 36.7; O2SAT 95; BMI 24.7
--- NOTE | 2023-10-16 16:36 | EKG12_ITS ---
Test Reason : Blood Pressure : / mmHG Vent. Rate : 114 BPM Atrial Rate : 114 BPM P-R Int : 156 ms QRS Dur : 080 ms QT Int : 318 ms P-R-T Axes : 062 057 253 degrees QTc Int : 438 ms Sinus tachycardia with Premature supraventricular complexes Low voltage QRS NS ST &T WAVE ABNORMALITY Abnormal ECG Confirmed by Williams Berrios ([id number]), editor map NARESH ASTORGA ([id number]) on 10/19/2023 9:02:52 AM Referred By: Confirmed By:Williams Berrios
--- NOTE | 2023-10-16 16:37 | EDS_ITS ---
HPI History of Present Illness Chief Complaint: Syncope Detail of Chief Complaint: Lightheaded, dizzy, short of breath Informant: patient Narrative Narrative: Patient presents to the emergency department via EMS. Patient states that she was out in the sun today and her friend gave her a THC gummy around 2:30 PM. Patient also had a half a can of 5.8% beer. Started feeling poorly with feeling lightheaded and dry mouth and feeling short of breath. She does not take Gummies regularly. She is not sure the strength of it or walk was in it. She has not been ill otherwise. Denies chest pain. [facility] Medical History (Updated 10/17/23 @ 00:[address] Kathi Case, DO) High cholesterol Depression History of borderline personality disorder Home Medications ?Medication ?Instructions ?Recorded ?Last Taken ?Type dextroamphetamine-amphetamine ER 30 mg PO DAILY 02/07/18 Unknown History 20 mg 24hr capsule,extend release (Adderall XR) topiramate 50 mg tablet 200 mg PO QHS 08/20/18 Unknown History lorazepam 0.5 mg tablet 0.5 mg PO DAILY 10/27/18 Unknown History hydroxyzine HCl 50 mg tablet 50 mg PO BID PRN PRN Anxiety 11/06/19 Unknown History omeprazole 20 mg delayed 20 mg PO DAILY ##30 11/06/19 Unknown Rx release,disintegrating tablet sucralfate 1 gram tablet 1 gm PO 4X/DAY #20 tabs 11/06/19 Unknown Rx dicyclomine 10 mg capsule 20 mg (2 x 10 mg) PO TIDAC #20 caps 03/29/20 Unknown Rx ondansetron 4 mg disintegrating 4 mg PO Q8H PRN Nausea 10/10/20 Unknown History tablet potassium chloride 20 mEq 20 meq PO BID #10 tabs 10/10/20 Unknown Rx tablet,extended release Allergy/AdvReac Type Severity Reaction Status Date / Time acetaminophen (From Allergy Itching Verified 10/16/23 16:58 Tylenol-Codeine #3) codeine (From Allergy Itching Verified 10/16/23 16:58 Tylenol-Codeine #3) hydrocodone bitartrate (From Allergy Itching Verified 10/16/23 16:58 Vicodin) Surgical History (Updated 10/10/20 @ 07:[address] Jose Angel Grossman, DO) Hx of appendectomy Status post arthroscopy of hip Social History (Updated 10/10/20 @ 07:[address] Jose Angel Grossman, DO) Smoking Status: Never smoker substance use type: does not use ROS ROS ED Review of Systems ROS Unobtainable: other Constitutional Constitutional ED: Reports lethargy; Denies chills, fever(s), sweats or weight loss Eyes Eyes: Denies blurry vision, change in vision or diplopia ENT ENT ED: Denies rhinorrhea or sore throat Cardiovascular Cardiovascular: Denies chest pain, orthopnea or racing heartbeat Respiratory/Chest Respiratory/Chest: Reports dyspnea; Denies cough, dyspnea on exertion, orthopnea or sputum Gastrointestinal Gastrointestinal: Denies abdominal pain, diarrhea, nausea or vomiting Genitourinary Genitourinary ED: Denies dysuria, hematuria or urinary frequency Musculoskeletal Musculoskeletal: Denies arthralgias, back pain, myalgias or neck pain Integumentary Denies abscess, Abrasions or rash Neurologic Neurologic: Reports other Details: Lightheadedness ; Denies headache(s) or weakness Psychiatric Psychiatric: Denies anxiety, depression or suicidal thoughts Endocrine Endocrinology: Denies polydipsia, polyphagia or polyuria Hematologic/Lymphatic Hematologic/Lymphatic: Denies easy bleeding, easy bruising or lymphadenopathy Allergic/Immunologic Allergic/Immunologic ED: Denies mouth swelling, tongue swelling or urticaria EXAM Physical Exam Const Vital Signs: 10/16/23 16:15 10/16/23 16:48 10/16/23 18:12 Temperature 98.1 F Temperature Source Oral Pulse Rate 124 H 95 Respiratory Rate 22 H 20 H Respiratory Effort Normal Blood Pressure 117/68 114/62 Blood Pressure Mean 84 79 Pulse Ox 95 97 Oxygen Delivery Method Room Air Room Air 10/16/23 19:48 10/16/23 20:28 Temperature 98.0 F Temperature Source Pulse Rate 89 76 Respiratory Rate 18 18 Respiratory Effort Blood Pressure 117/70 117/72 Blood Pressure Mean 85 87 Pulse Ox 97 98 Oxygen Delivery Method Room Air Positive well nourished and well developed General Appearance ED: well developed and NAD HEENT Reports TM's clear and moist mucous membranes normocephalic and atraumatic; Negative for trauma or tenderness Tympanic Membrane ED: Yes TM's clear Eyes PERRL and EOMs intact bilaterally General Eye ED: Negative for pale conjunctiva or scleral icterus Neck no lymphadenopathy, supple and no JVD General: Negative for tenderness Chest Wall inspection of chest normal and palpation of chest normal Chest: Negative for tenderness Resp normal respiratory effort and clear to auscultation bilaterally Effort and Inspection: Negative for respiratory distress or pain with movement Auscultation: Negative for rhonchi, wheezes or diminished lung sounds Cardio regular rate, S1 normal heart sound, S2 normal heart sound and no murmurs; Negative for regular rhythm Rate: tachycardic Peripheral Pulses: pulses 2+ throughout GI normal to inspection, nondistended, normoactive bowel sounds, soft to palpation, non-tender, non-distended and no masses Back/Spine no CVA tenderness and no thoracic nor lumbar tenderness Extremity normal to inspection General Extremety ED: Negative for edema General Extremity: Negative for edema Neuro oriented x3, CN's II-XII intact bilaterally, no sensory deficits noted and gait normal Sensorium / Orientation: awake, alert, oriented to person, oriented to place and oriented to time Motor Exam: strength 5/5 throughout and strength abnormal Psych mental status grossly normal Skin no rashes or lesions noted and no wounds MDM MDM MDM Narrative Medical decision making narrative: Patient presents with complaint of feeling lightheaded and nauseated after ingesting a THC gummy and drinking half a can of an alcoholic beverage. Patient denies recent illness. IV line established. CBC with differential white count 6.0 with hemoglobin 12 and platelet count of of 214. Chemistries unremarkable. Talk screen positive for amphetamines and THC. Alcohol was 11. Patient did complain of a headache and she received Toradol 30 mg IV and felt markedly improved. Patient also on arrival received a milligram of Ativan. She was given a liter normal saline fluid bolus. This point clinically she looks well. Will discharge to home. Suspect effects from THC gummy. The amphetamine positivity on tox cream may be related to Adderall use. Lab Data Attestation: I reviewed the patient's lab results. Labs: Laboratory Results - last 24 hr 10/16/23 10/16/23 16:45 18:50 WBC 6.0 RBC 3.96 L Hgb 12.1 Hct 36.6 L MCV 92.4 MCH 30.6 MCHC 33.1 RDW Std Deviation 40.8 RDW Coeff of Gregory 11.9 Plt Count 214 MPV 10.3 Immature Gran % (Auto) 0.200 Neut % (Auto) 55.0 Lymph % (Auto) 38.8 [place] % (Auto) 4.8 Eos % (Auto) 0.7 Baso % (Auto) 0.5 Absolute Neuts (auto) 3.3 Absolute Lymphs (auto) 2.33 Nucleated RBC % 0 Sodium 140 Potassium 3.1 L Chloride 112 H Carbon Dioxide 20.0 L Anion Gap 8 BUN 13 Creatinine 1.05 H Estim Creat Clear Calc 57.68 Est GFR (MDRD) Af Amer 71 Est GFR (MDRD) Non-Af 59 L BUN/Creatinine Ratio 12.4 Glucose 114 H Calcium 8.8 Urine Opiates Screen NEGATIVE Urine Methadone Screen NEGATIVE Ur Barbiturates Screen NEGATIVE Ur Phencyclidine Scrn NEGATIVE Ur Amphetamines Screen POSITIVE H MDMA (Ecstasy) Screen NEGATIVE U Benzodiazepines Scrn NEGATIVE Urine Cocaine Screen NEGATIVE U Cannabinoids Screen POSITIVE H Ur Drug Screen Comment Ethyl Alcohol 11.0 EKG Initial EKG: Attestation: I personally reviewed and interpreted this EKG as follows: Comments: Sinus rhythm with ventricular rate of [address] changes Discharge Plan Triage Chief Complaint: Syncope ED Provider: Kathi Case Dx/Rx/DC Orders Clinical Impression: Dizziness, Headache, Tetrahydrocannabinol (THC) use disorder, mild, abuse Instructions: ED Dizziness, Uncertain Cause, ED Drug Abuse Prescriptions: No Action dextroamphetamine-amphetamine [Adderall XR] 20 MG capsule,extended release 24hr 30 mg PO DAILY topiramate 50 tablet 200 mg PO QHS lorazepam 0.5 tablet 0.5 mg PO DAILY hydroxyzine HCl 50 MG tablet 50 mg PO BID PRN PRN (Reason: Anxiety) sucralfate 1 GM tablet 1 gm PO 4X/DAY Qty: 20 0RF omeprazole 20 MG tablet,disintegrat, delay rel 20 mg PO DAILY Qty: 30 0RF dicyclomine 10 MG capsule 20 mg PO TIDAC Qty: 20 0RF ondansetron [Zofran ODT] 4 mg Tablet,Disintegrating 4 mg PO Q8H PRN (Reason: Nausea) potassium chloride 20 mEq tablet extended release 20 meq PO BID Qty: 10 0RF Primary Care Provider: Margaret Ortiz Referrals: Margaret Ortiz MD [Primary Care Provider] - 3-5 Days Print Language: Malay Disposition Disposition: Home, Self Care Discharge Date/Time: 10/16/23 20:30
[2023-10-16] MEDS: 0.9% Normal Saline (1000mL) 1,000 ML 1000 ML IV (16:43)
[2023-10-16] MEDS: LORazepam 2 MG/ML Syringe 1 MG IV (16:44)
[2023-10-16 16:57] LABS: Absolute Lymphocyte Count 2.33 X10^3/uL (0.83-4.51); Absolute Neutrophil Count 3.3 X10^3/uL (2.0-7.7); Basophil# 0.03 X10^3/uL; Basophil% 0.5 % (0-1); Eosinophil# 0.04 X10^3/uL; Eosinophils% 0.7 % (0-5); Hematocrit 36.6 % (37-47); Hemoglobin 12.1 g/dL (12.0-15.0); Lymphocyte # 2.33 X10^3/ul (0.83-4.51); Lymphocyte % 38.8 % (19-41); Mean Corp Hgb Conc 33.1 g/dL (32-36); Mean Corpuscular Hgb 30.6 pg (27.0-32.0); Mean Corpuscular Volume 92.4 fL (81-99); Mean Platelet Vol. 10.3 fl (6.2-12.0); Monocyte# 0.29 X10^3/uL; Monocyte% 4.8 % (0-10); NRBC Flagged by Analyzer 0 % (0-5); Neutrophil # 3.31 X10^3/uL (2.7-7.7); Platelet Count 214 K/mm3 (150-450); RBC Distribution Width CV 11.9 % (11.6-14.6); RBC Distribution Width SD 40.8 fl (35.1-43.9); Red Blood Count 3.96 M/mm3 (4.2-5.4)
[2023-10-16 17:14] LABS: Anion Gap 8 (5-15); BUN 13 mg/dL (7-18); BUN/Creat Ratio 12.4 RATIO (10-20); Calcium,Total 8.8 mg/dL (8.5-10.1); Chloride 112 mmol/L (98-107); Creatinine, Serum 1.05 mg/dL (0.55-1.02); EST Glomerular Filtration Rate 59 mL/min (>60); Est Glom Filt Rate - Afr Amer 71 mL/min (>60); Estimated Creatinine Clearance 57.68 ml/min; Glucose 114 mg/dL (74-106); Potassium 3.1 mmol/L (3.5-5.1); Sodium Level 140 mmol/L (136-145)
[2023-10-16 18:12] VITALS: BP 114/62; PULSE 95; RESP 20; O2SAT 97
[2023-10-16] MEDS: Ketorolac 30 MG/ML Syringe IV (19:20)
[2023-10-16 19:48] VITALS: BP 117/70; PULSE 89; RESP 18; O2SAT 97
[2023-10-16 19:48] LABS: Amphetamine Urine VISTA POSITIVE (<1000 ng/mL)
[2023-10-16 19:49] LABS: Barbiturate Urine VISTA NEGATIVE (< 200 ng/mL); Benzodiazepine Urine VISTA NEGATIVE (< 200 ng/mL); Cocaine Urine VISTA NEGATIVE (< 300 ng/mL); Ecstacy Urine VISTA NEGATIVE (< 500 ng/mL); Methadone Urine VISTA NEGATIVE (< 300 ng/mL); PCP Urine VISTA NEGATIVE (< 25 ng/mL); THC Urine VISTA POSITIVE (< 50 ng/mL)
[2023-10-16 20:28] VITALS: BP 117/72; PULSE 76; RESP 18; TEMP 36.7; O2SAT 98
[2023-10-17 06:04] LABS: Vista UDS pH Range 5
== END 2023-10-16 20:30 | disposition home or self-care (01) ==
LOC: ED 16:40
PROVIDERS: Emergency Provider Emergency Medicine; PCP Internal Medicine; Visit Provider Emergency Medicine
DX: R42 Dizziness and giddiness (principal); F12.10 Cannabis abuse, uncomplicated; R06.02 Shortness of breath; E78.00 Pure hypercholesterolemia, unspecified; R11.0 Nausea; R51.9 Headache, unspecified; Z79.899 Other long term (current) drug therapy
CPT/HCPCS: 80048; 80307; 82077; 85025; 93005; 96361; 96374; 96375; 99283; A4216

== ENCOUNTER → 2025-01-03 | Outpatient (CLI) | payer MEDICAID, SELFPAY ==
--- NOTE | 2025-01-03 11:34 | STRESSREP ---
Stress Test Report Date: 01/03/2025 Procedure: Exercise tolerance test Indications: Chest pain Consent: Per the patient Procedure: The patient exercised on a Jaspreet protocol for 8 minutes achieving a peak heart rate of 151 bpm (89% predicted maximal heart rate) with a peak blood pressure 144/84 mmHg and a peak MET capacity of approximately 10.1 MET's. The baseline ECG demonstrated sinus rhythm with nonspecific ST-T wave changes. The peak exercise ECG showed downsloping ST depressions in inferior leads however specificity is reduced because of baseline abnormality. There were no cardiac dysrhythmias pretest, during exercise, or recovery. The functional capacity was considered very good. The patient complained of midsternal chest pressure at peak exercise that resolved in recovery. The examination was discontinued secondary to target heart rate being achieved. Impression: 1. Technically adequate (percent predicted maximal heart rate greater than 85%) exercise tolerance test. Chest pressure reported with exercise 2. Peak exercise ECG with downsloping ST depressions in inferior leads that may suggest ischemia, however with baseline abnormality, specificity is reduced 3. There were no cardiac dysrhythmias during exercise or recovery This note was generated with [email or web address] software. It may contain incorrect words, spelling, and punctuation that were not noted in checking the note before signing.
== END | disposition home or self-care (01) ==
PROVIDERS: PCP Internal Medicine
DX: R07.89 Other chest pain (principal)
CPT/HCPCS: 93017

== ENCOUNTER 2025-02-04 11:38 | Emergency (ER) | payer MEDICAID, SELFPAY ==
[2025-02-04 11:39] VITALS: BP 126/82; PULSE 124; RESP 18; TEMP 36.9; O2SAT 100; BMI 23.9
--- NOTE | 2025-02-04 12:23 | RAD_ITS ---
PROCEDURE: CHEST 1 VIEW (PORTABLE) 02/04/2025 REASON FOR EXAM: WEAKNESS, CHEST PAIN TECHNIQUE: Frontal view of the chest. COMPARISON: 03/29/2020 FINDINGS: Hardware: EKG leads overlie the chest Heart: Cardiac and mediastinal contours are stable. Lungs: No significant change in the appearance of the lungs. Bones: The bones are unremarkable. RAD/Chest 1 View (Portable) IMPRESSION: No acute pulmonary process Reading Location: [id number]
--- NOTE | 2025-02-04 12:23 | EKG12_ITS ---
Test Reason : Blood Pressure : */* mmHG Vent. Rate : 98 BPM Atrial Rate : 98 BPM P-R Int : 150 ms QRS Dur : 78 ms QT Int : 326 ms P-R-T Axes : 62 60 268 degrees QTcB Int : 416 ms Normal sinus rhythm ST & T wave abnormality, consider inferior ischemia ST & T wave abnormality, consider anterolateral ischemia Abnormal ECG Confirmed by LAZARO NAPOLES, UDAY ([id number]), editor sound TRISTIAN BANUELOS ([id number]) on 02/06/2025 9:09:44 AM Referred By: Confirmed By: UDAY WILLIS MD
--- NOTE | 2025-02-04 12:25 | EX.ED.DYSGE1 ---
HPI History of Present Illness Chief Complaint: Back Informant: patient Narrative Narrative: Patient is a 49-year-old female with a history of TOS, anxiety, and depression, presenting with diffuse myalgias and cephalgia. - Reports diffuse pain since (4 days ago), describing sensation as like someone really just beat the crap out of me. - Pain is localized to the head, chest, ribs, back, and legs; chest pain worsens with talking. - Associated symptoms include a severe headache and abdominal pain. - Denies cough, emesis, diarrhea, dysuria, or urinary frequency. - Uncertain about fever, stating, I feel like it may have gone up or down. - Reports two brief episodes of otalgia prior to symptom onset, each lasting about 5 minutes. - Has not eaten in 3 days; this is the first time she has gotten up in 3 days. - Noticed unexplained bruising on both legs; denies trauma or anticoagulant use. - Taking acetaminophen every few hours with minimal relief, although it and ibuprofen are helping some. - Has leftover pain medication from surgery in June; allergic to Vicodin. - Underwent surgery in June for TOS, involving removal of a rib. - Taking medications for anxiety, depression, and sleep. [facility] Medical History High cholesterol Depression History of borderline personality disorder Home Medications ?Medication ?Instructions ?Recorded ?Last Taken ?Type hydroxyzine HCl 50 mg tablet 50 mg PO BID PRN PRN Anxiety 11/06/19 02/03/25 History ondansetron 4 mg disintegrating 4 mg PO Q8H PRN Nausea 10/10/20 01/31/25 History tablet bupropion HCl 150 mg 24 hr tablet, 150 mg PO DAILY 02/04/25 02/04/25 History extended release lisdexamfetamine 70 mg capsule 70 mg PO DAILY 02/04/25 02/04/25 History (Vyvanse) lorazepam 1 mg tablet 1 mg PO TID PRN PRN anxiety 02/04/25 02/03/25 History mometasone-formoterol HFA 200 2 puff inhalation BID 02/04/25 Unknown History mcg-5 mcg/actuation aerosol inhaler (Dulera) potassium chloride 20 mEq 20 meq PO BID #8 tabs 02/04/25 Unknown Rx tablet,extended release (K-Tab) quetiapine 300 mg tablet 300 mg PO QHS 02/04/25 Unknown History topiramate 100 mg tablet 200 mg PO QHS 02/04/25 Unknown History tramadol 50 mg tablet 50 mg PO Q6H PRN pain 3 days #10 02/04/25 Unknown Rx tabs Allergy/AdvReac Type Severity Reaction Status Date / Time acetaminophen (From Allergy Itching Verified 02/04/25 11:41 Tylenol-Codeine #3) codeine (From Allergy Itching Verified 02/04/25 11:41 Tylenol-Codeine #3) hydrocodone bitartrate (From Allergy Itching Verified 02/04/25 11:41 Vicodin) Surgical History Hx of appendectomy Status post arthroscopy of hip Social History Smoking Status: Never smoker substance use type: does not use ROS ROS ED Constitutional Constitutional ED: Reports body ache(s), fatigue, fever(s), malaise and subjective; Denies chills Eyes Eyes: Denies change in vision or diplopia ENT ENT ED: Denies rhinorrhea or sore throat Cardiovascular Cardiovascular: Reports chest pain and other Details: my ribs hurt all over ; Denies palpitations Respiratory/Chest Respiratory/Chest: Denies cough or dyspnea Gastrointestinal Gastrointestinal: Reports nausea; Denies abdominal pain, diarrhea or vomiting Genitourinary Genitourinary ED: Denies dysuria, hematuria or urinary frequency Musculoskeletal Musculoskeletal: Reports back pain and myalgias; Denies arthralgias or neck pain Integumentary Denies abscess or rash Neurologic Neurologic: Reports headache(s); Denies paresthesias or weakness Psychiatric Psychiatric: Denies suicidal thoughts EXAM Physical Exam Const Vital Signs: 02/04/25 11:39 02/04/25 12:46 02/04/25 14:00 Temperature 98.4 F 97.8 F Temperature Source Oral Oral Pulse Rate 124 H 91 Respiratory Rate 18 14 Blood Pressure 126/82 H 122/72 H Blood Pressure Mean 96 88 Pulse Ox 100 97 Oxygen Delivery Method Room Air Room Air Room Air Positive well nourished and well developed General Appearance ED: well developed and NAD HEENT Reports moist mucous membranes HEENT Narrative: TMs normal bilaterally. Posterior oropharynx clear. Oral mucous membranes are moist. normocephalic and atraumatic Eyes PERRL and EOMs intact bilaterally Neck full ROM, no lymphadenopathy and supple Resp normal respiratory effort and clear to auscultation bilaterally Cardio regular rate, regular rhythm and no murmurs Rate: tachycardic GI non-tender and non-distended Auscultation: normoactive bowel sounds Palpation: soft Back/Spine no CVA tenderness Back/Spine Narrative: Able to sit up without significant limitation on her own. General Back: other FROM Extremity normal to inspection Extremity Narrative: Multiple scattered ecchymoses on lower extremities. There are small 1-2 cm at the largest. No purpura, no petechia. No bullae or other rashes. General Extremety ED: Negative for edema, pulses abnormal or tenderness General Extremity: Negative for edema or pulses abnormal Neuro oriented x3, CN's II-XII intact bilaterally and no sensory deficits noted Sensorium / Orientation: awake and alert Motor Exam: strength 5/5 throughout Psych Mood & Affect: anxious Skin no rashes or lesions noted and no wounds MDM MDM MDM Narrative Medical decision making narrative: Assessment: The patient is a 49-year-old female presenting for diffuse myalgias involving head, chest, back, ribs, abdomen, and legs since . She also reports bruising to both legs. Initial pulse was 124 but improved to the 90s on re-evaluation. Labs show hypokalemia and mildly elevated liver enzymes (AST 34, ALT 37, alkaline phosphatase 127) with normal coagulation profile, albumin, total protein, kidney function, and negative urine study. Serial troponins are negative and chest-x-ray is normal; EKG demonstrates chronic inferolateral non-specific ST-T abnormalities unchanged from prior. Chest pain is most consistent with musculoskeletal myalgias related to her diffuse pain; viral syndrome considered but less likely given lack of respiratory symptoms. Mild transaminase elevation does not suggest acute hepatitis. Plan: - Administered 40 mEq oral potassium in ED - Administered ED analgesia (morphine) with symptomatic relief - Discharge home with prescription for limited supply tramadol for pain control - Home potassium supplementation continued - Instructed to follow up with PCP regarding liver enzyme elevations and for symptom persistence or worsening Diagnostics: - EKG interpreted: inferolateral non-specific ST-T wave abnormalities, unchanged from prior study; independently interpreted by me, Rubio Mejias. - Chest x-ray one view: normal. - Labs: hypokalemia; AST 34 U/L, ALT 37 U/L, alkaline phosphatase 127 U/L; serial troponins negative; normal kidney function; normal coagulation studies; normal albumin and total protein. - Urinalysis: no infection. Reevaluations: - Pulse decreased from 124 to 90s with symptomatic improvement after analgesia and potassium replacement; patient clinically stable for discharge. Lab Data Attestation: I reviewed the patient's lab results. Labs: Laboratory Results - last 24 hr 02/04/25 02/04/25 02/04/25 12:35 12:40 14:34 WBC 7.1 RBC 4.13 L Hgb 12.9 Hct 38.0 MCV 92.0 MCH 31.2 MCHC 33.9 RDW Std Deviation 40.4 RDW Coeff of Gregory 11.9 Plt Count 238 MPV 9.8 Immature Gran % (Auto) 0.300 Neut % (Auto) 76.8 H Lymph % (Auto) 17.3 L [place] % (Auto) 4.6 Eos % (Auto) 0.4 Baso % (Auto) 0.6 Absolute Neuts (auto) 5.5 Absolute Lymphs (auto) 1.23 Nucleated RBC % 0 PT 13.3 INR 1.0 APTT 31.8 Sodium 139 Potassium 3.2 L Chloride 100 Carbon Dioxide 26.6 Anion Gap 12 BUN 15 Creatinine 0.91 Estim Creat Clear Calc 65.81 Est GFR (MDRD) Non-Af 76 BUN/Creatinine Ratio 16.8 Glucose 113 H Lactic Acid < 1.0 Calcium 9.2 Total Bilirubin 0.71 AST 34 H ALT 37 H Alkaline Phosphatase 127 H Troponin T High Sens < 6 Troponin T Hi Sens 2 Hr < 6 Total Protein 7.6 Albumin 4.2 Globulin 3.5 Albumin/Globulin Ratio 1.2 Urine Color Yellow Urine Clarity Sl. Cloudy Urine pH 5.0 Ur Specific [place] 1.030 Urine Protein 30 H Urine Glucose (UA) Normal Urine Ketones Negative Urine Occult Blood 50 H Urine Nitrite Negative Urine Bilirubin Negative Urine Urobilinogen Normal Ur Leukocyte Esterase 25 H Urine RBC 0 SEEN Urine WBC 0-5 SEEN Ur Squamous Epith Cells 0-5 SEEN Urine Bacteria 0 SEEN Urine Mucus 2+ Radiography Diagnostic Testing: Clinical Impression(s) from Imaging Studies Chest X-Ray 02/04/25 12:23 IMPRESSION: No acute pulmonary process Reading Location: [facility] Rhythm Strip Rhythm Strip: Sinus Rhythm Rate: 98 Ectopy: None EKG Initial EKG: Attestation: I personally reviewed and interpreted this EKG as follows: Interpretation: Sinus Rhythm, No Acute Injury Pattern and Non-Specific ST Changes Prior EKG tracings: available for review Prior: Unchanged Discharge Plan Triage Chief Complaint: Back ED Provider: Rubio Mejias Dx/Rx/DC Orders Clinical Impression: Hypokalemia, Myalgia, Cephalgia, Other chest pain, Elevation of levels of liver transaminase levels, Ecchymosis Instructions: ED Hypokalemia, ED Myalgias Prescriptions: New potassium chloride [K-Tab] 20 mEq tablet extended release 20 meq PO BID Qty: 8 0RF tramadol 50 mg tablet 50 mg PO Q6H PRN (Reason: pain) 3 Days Qty: 10 0RF No Action hydroxyzine HCl 50 MG tablet 50 mg PO BID PRN PRN (Reason: Anxiety) ondansetron [Zofran ODT] 4 mg Tablet,Disintegrating 4 mg PO Q8H PRN (Reason: Nausea) quetiapine 300 mg tablet 300 mg PO QHS topiramate 100 mg tablet 200 mg PO QHS bupropion HCl 150 mg tablet extended release 24 hr 150 mg PO DAILY lisdexamfetamine [Vyvanse] 70 mg capsule 70 mg PO DAILY Dulera 200-5 mcg/actuation HFA aerosol inhaler 2 puff inhalation BID lorazepam 1 mg tablet 1 mg PO TID PRN PRN (Reason: anxiety) Primary Care Provider: Margaret Ortiz Referrals: Margaret Ortiz MD [Primary Care Provider, Internal Medicine] - 3-5 Days if not improving Print Language: Welsh Disposition Disposition: Home, Self Care
[2025-02-04] MEDS: 0.9% Normal Saline (1000mL) 1,000 ML 999 ML IV (12:43)
[2025-02-04 12:49] LABS: Red Blood Cells-Urine 0 SEEN /hpf (0-5)
[2025-02-04 12:52] LABS: Color, Urine Yellow (Yellow); Glucose, Dipstick Normal (Normal); Ketone-Dipstick Negative (Negative); Leukocyte Esterase-Dipstick 25 /ul (Negative); Nitrite-Dipstick Negative (Negative); Occult Blood-Urine 50 /ul (Negative); Protein-Dipstick 30 mg/dl (Negative); Specific Gravity, Urine 1.030 (1.002-1.030); Urine Bilirubin Dipstick Negative (Negative)
[2025-02-04 12:52] LABS: Hematocrit 38.0 % (37-47); Hemoglobin 12.9 g/dL (12.0-15.0); Immature Granulocytes Count 0.020 X10^3/uL (0.0-0.0); Mean Corp Hgb Conc 33.9 g/dL (32-36); Mean Corpuscular Volume 92.0 fL (81-99); Mean Platelet Vol. 9.8 fl (6.2-12.0); NRBC Flagged by Analyzer 0 % (0-5); Platelet Count 238 K/mm3 (150-450); RBC Distribution Width CV 11.9 % (11.6-14.6); RBC Distribution Width SD 40.4 fl (35.1-43.9); Red Blood Count 4.13 M/mm3 (4.2-5.4); White Blood Count 7.1 K/mm3 (4.4-11.0)
[2025-02-04 12:59] LABS: Prothrombin Time (Protime)PT. 13.3 SECONDS (11.7-14.9)
[2025-02-04 13:00] LABS: Mucous, Urine 2+ /hpf (<or=2+); Squamous Epithelial Cells - UA 0-5 SEEN /hpf (5-10)
[2025-02-04 13:01] LABS: Partial Thromboplast Time 31.8 Seconds (24.1-36.2)
[2025-02-04 13:13] LABS: AST(SGOT) 34 U/L (<=31); Alanine Aminotransfer ALT/SGPT 37 U/L (<=34); Albumin, Serum 4.2 g/dL (3.5-5.0); Alkaline Phosphatase 127 U/L (35-104); Anion Gap 12 (5-15); BUN 15 mg/dL (4-19); BUN/Creat Ratio 16.8 RATIO (10-20); Calcium,Total 9.2 mg/dL (7.6-11.0); Carbon Dioxide 26.6 mmol/L (21.0-32.0); Chloride 100 mmol/L (98-108); Estimated Creatinine Clearance 65.81 ml/min (50-250); Globulin 3.5 g/dL (2.2-4.2); Glucose 113 mg/dL (70-99); Potassium 3.2 mmol/L (3.3-5.1)
[2025-02-04 13:16] LABS: Troponin T High Sensitivity < 6 ng/L (<=14)
[2025-02-04 14:00] VITALS: BP 122/72; PULSE 91; RESP 14; TEMP 36.6; O2SAT 97
[2025-02-04] MEDS: Potassium Chloride Oral Tablet 20 MEQ 40 MEQ PO (14:53)
[2025-02-04 15:15] LABS: Troponin T High Sens 2 HR < 6 ng/L (<=14)
[2025-02-04 15:33] VITALS: BP 127/74; PULSE 81; RESP 16; TEMP 36.6; O2SAT 99
== END 2025-02-04 15:34 | disposition home or self-care (01) ==
PROVIDERS: Emergency Provider Emergency Medicine; PCP Internal Medicine; Visit Provider Emergency Medicine
DX: M54.9 Dorsalgia, unspecified (principal); E87.6 Hypokalemia; R07.89 Other chest pain; E78.00 Pure hypercholesterolemia, unspecified; F32.A Depression, unspecified; R51.9 Headache, unspecified; R74.01 Elevation of levels of liver transaminase levels; F41.9 Anxiety disorder, unspecified; Z79.899 Other long term (current) drug therapy; S80.11XA Contusion of right lower leg, initial encounter; S80.12XA Contusion of left lower leg, initial encounter; X58.XXXA Exposure to other specified factors, initial encounter
CPT/HCPCS: 71045; 80053; 81001; 83605; 84484; 85025; 85610; 85730; 87040; 87086; 87088; 93005; 96361; 96374; 96375; 99284; A4216; J2405

== ENCOUNTER → 2025-02-26 | Outpatient (CLI) | payer MEDICAID, SELFPAY ==
--- NOTE | 2025-02-26 09:55 | RAD_ITS ---
PROCEDURE: L/S SPINE MIN 4 VIEWS 02/26/2025 REASON FOR EXAM: LUMBAR RADICULOPATHY TECHNIQUE: Procedure Code: [id number] Modality: DX Procedure: L/S SPINE MIN 4 VIEWS COMPARISON: 10/10/2020 ; note that images only are available for review, the report is not available at the time of the dictation. FINDINGS: Fracture/dislocation: None visible. Vertebral body heights: Preserved. Alignment: Unremarkable Disc spaces: Very mild minimally imaged lower thoracic disc height loss with tiny osteophytes. Facets: Unremarkable. Soft tissues: Presumed pelvic phleboliths bilaterally.. Foreign bodies: None visible. Bone mineralization: Grossly unremarkable. Other: None. RAD/L/S Spine Min 4 Views IMPRESSION: 1. No visible acute displaced fracture. 2. Very mild minimally imaged lower thoracic degenerative findings evident radi ographically. Reading Location: [id number]
== END | disposition home or self-care (01) ==
PROVIDERS: PCP Internal Medicine; Referring Provider Chiropractor; Visit Provider Chiropractor
DX: M54.16 Radiculopathy, lumbar region (principal)
CPT/HCPCS: 72110